=== PATIENT | female | born 1935 | race Caucasian/White ===

== ENCOUNTER 2018-08-15 09:46 | Emergency (ER) | payer MEDICARE, BC ==
[2018-08-15 09:58] VITALS: BP 164/60; PULSE 54
--- NOTE | 2018-08-15 10:30 | EDM.PDOC ---
ED HPI GENERAL MEDICAL PROBLEM - General Chief Complaint: Gastrointestinal Problem Stated Complaint: AMBULANCE Time Seen by Provider: 08/15/18 10:20 Source of Information: Reports: Patient History Limitations: Reports: No Limitations - History of Present Illness INITIAL COMMENTS - FREE TEXT/NARRATIVE: This 83 yo female patient was brought to the ED by [facility] due to dizziness and nausea. The patient reports her dizziness and nausea have subsided by the time of the assessment. The patient was given an oral dose of Zofran by EMS. The patient does report her stomach does not feel normal at this time, but could not describe how it feels different. The patient reports a history of diverticulitis (discovered several years ago while in [place]). 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 Medication(s) (Zofran by EMS) - Related Data Allergies Allergy/AdvReac Type Severity Reaction Status Date / Time atorvastatin calcium Allergy Leg Cramps Verified 10/12/15 15:41 [From Lipitor] warfarin sodium Allergy Dizziness Verified 10/12/15 15:41 [From Coumadin] Home Meds: Home Meds Lisinopril 10 mg PO DAILY 10/12/15 [History] Simvastatin [Zocor] 40 mg PO BEDTIME 10/12/15 [History] Past Medical History HEENT History: Reports: Impaired Vision Other HEENT History: wears glasses Cardiovascular History: Reports: Hypertension Gastrointestinal History: Reports: Diverticulosis 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: - Infectious Disease History Infectious Disease History: Reports: Other (See Below) Other Infectious Disease History: does not remember - Past Surgical History HEENT Surgical History: Reports: Cataract Surgery GI Surgical History: Reports: Hernia Repair/Other Female Surgical History: Reports: Hysterectomy Social & Family History - Family History Family Medical History: Noncontributory - Tobacco Use Smoking Status *Q: Never Smoker Second Hand Smoke Exposure: No - Recreational Drug Use Recreational Drug Use: No ED ROS GENERAL - Review of Systems Review Of Systems: ROS reveals no pertinent complaints other than HPI. ED EXAM, GENERAL - Physical Exam Exam: See Below Exam Limited By: No Limitations General Appearance: Alert, WD/WN, No Apparent Distress Eye Exam: Bilateral Eye: EOMI, Normal Inspection, PERRL Ears: Normal External Exam, Normal Canal, Hearing Grossly Normal, Normal TMs Nose: Normal Inspection, Normal Mucosa, No Blood Throat/Mouth: Normal Inspection, Normal Lips, Normal Teeth, Normal Gums, Normal Oropharynx, Normal Voice, No Airway Compromise Head: Atraumatic, Normocephalic Neck: Normal Inspection, Supple, Non-Tender, Full Range of Motion Respiratory/Chest: No Respiratory Distress, Lungs Clear, Normal Breath Sounds, No Accessory Muscle Use, Chest Non-Tender Cardiovascular: Normal Peripheral Pulses, Regular Rate, Rhythm, No Edema, No Gallop, No JVD, No Murmur, No Rub GI/Abdominal: Normal Bowel Sounds, Soft, Non-Tender, No Organomegaly, No Distention, No Abnormal Bruit, No Mass (Female) Exam: Deferred Rectal (Female) Exam: Deferred Back Exam: Normal Inspection, Full Range of Motion, NT Extremities: Normal Inspection, Normal Range of Motion, Non-Tender, Normal Capillary Refill, No Pedal Edema Neurological: Alert, Oriented, CN II-XII Intact, Normal Cognition, Normal Gait, Normal Reflexes, No Motor/Sensory Deficits Psychiatric: Normal Affect, Normal Mood Skin Exam: Warm, Dry, Intact, Normal Color, No Rash Lymphatic: No Adenopathy Course - Vital Signs Last Recorded V/S: Last Vital Signs Temp 35.8 C 08/15/18 09:49 Pulse 54 L 08/15/18 09:49 Resp 18 08/15/18 09:49 BP 164/60 H 08/15/18 09:49 Pulse Ox 92 L 08/15/18 09:49 Orthostatic Blood Pressure [ 105/86 Standing] Orthostatic Blood Pressure [ 152/71 Sitting] Orthostatic Blood Pressure [ 173/52 Supine] - Orders/Labs/Meds Orders: Active Orders 24 hr Category Date Time Status EKG Documentation Completion [RC] URGENT Care 08/15/18 09:59 Active Labs: Laboratory Tests 08/15/18 08/15/18 Range/Units 10:10 10:10 WBC 3.6 L (5.0-10.0) 10^3/uL RBC 4.53 (4.2-5.4) 10^6/uL Hgb 12.0 D (12.0-16.0) g/dL Hct 37.8 (37.0-47.0) % MCV 83.4 (80-100) fL MCH 26.5 L (27.0-34.0) pg MCHC 31.7 L (33.0-35.0) g/dL Plt Count 166 (150-450) 10^3/uL Neut % (Auto) 58.4 (42.2-75.2) % Lymph % (Auto) 24.5 (20.5-50.1) % [place] % (Auto) 10.4 H (2-8) % Eos % (Auto) 5.9 H (1.0-3.0) % Baso % (Auto) 0.8 (0.0-1.0) % Sodium 138 (135-145) mmol/L Potassium 4.2 (3.6-5.0) mmol/L Chloride 107 (101-111) mmol/L Carbon Dioxide 23.0 (21.0-31.0) mmol/L Anion Gap 12.2 BUN 19 H (7-18) mg/dL Creatinine 0.9 (0.6-1.3) mg/dL Est Cr Clr Drug Dosing TNP Estimated GFR (MDRD) 60 BUN/Creatinine Ratio 21.11 Glucose 202 H (74-105) mg/dL Calcium 9.2 (8.4-10.2) mg/dl Total Bilirubin 1.5 H (0.2-1.0) mg/dL AST 21 (10-42) IU/L ALT 14 (10-60) IU/L Alkaline Phosphatase 73 (42-121) IU/L Troponin I < 0.02 (0.00-0.02) ng/ml Total Protein 7.3 (6.7-8.2) g/dl Albumin 3.6 (3.2-5.5) g/dl Globulin 3.7 Albumin/Globulin Ratio 0.97 Departure - Departure Time of Disposition: 11:00 Disposition: Home, Self-Care 01 Condition: Fair Clinical Impression: Orthostatic hypotension, Near syncope - Discharge Information *PRESCRIPTION DRUG MONITORING PROGRAM REVIEWED*: Not Applicable *COPY OF PRESCRIPTION DRUG MONITORING REPORT IN PATIENT ILEANA: Not Applicable Instructions: Near-Syncope, [id number] Forms: ED Department Discharge Care Plan Goals: The patient was advised of the examination, lab and EKG results during the visit. The patient was encouraged to increase her oral fluid intake. The patient was also encouraged to rest and relax over the next 24 hours. The patient should stand for a few seconds before walking while at home. If the patient has any additional symptoms or concerns, the patient should either return to the emergency department or visit her primary care facility. - My Orders Last 24 Hours: My Active Orders 08/15/18 09:59 EKG Documentation Completion [RC] URGENT - Assessment/Plan Last 24 Hours: My Active Orders 08/15/18 09:59 EKG Documentation Completion [RC] URGENT
[2018-08-15 10:35] LABS: ANION GAP 12.2; CHLORIDE,CL 107 mmol/L (101-111); SODIUM,NA 138 mmol/L (135-145)
== END 2018-08-15 11:20 | disposition home or self-care (01) ==
LOC: DL.ED 09:46
DX: I95.1 Orthostatic hypotension (principal); I10 Essential (primary) hypertension; Z79.899 Other long term (current) drug therapy; Z88.8 Allergy status to other drugs, medicaments and biological substances; Z98.49 Cataract extraction status, unspecified eye; Z90.710 Acquired absence of both cervix and uterus
CPT/HCPCS: 36415; 80053; 84484; 85025; 93005; 99283; 99284-25

== ENCOUNTER 2020-05-31 12:44 | Emergency (ER) | payer MEDICARE, BC ==
[2020-05-31 12:59] VITALS: BP 139/72; PULSE 88
--- NOTE | 2020-05-31 15:13 | US ---
PROCEDURE INFORMATION: Exam: US Duplex Left Lower Extremity Veins, Limited Exam date and time: 05/31/2020 2:28 PM Age: 84 years old Clinical indication: Pain; Leg, upper; Left; Additional info: Left left pain/swelling, d-dimer >4000 TECHNIQUE: Imaging protocol: Real-time Duplex ultrasound of the Left Lower Extremity with 2-D savage scale, color Doppler flow and spectral waveform analysis with image documentation. Limited exam focused on the left lower extremity veins. COMPARISON: No relevant prior studies available. FINDINGS: Left deep veins: Thrombus is present throughout the common femoral, femoral, proximal profunda femoral and popliteal veins. Soft tissues: Unremarkable. IMPRESSION: DVT throughout the left lower extremity.
[2020-05-31] MEDS ORDERED: Heparin Sodium 5,000 Units/ML Vial IVPUSH ONE (15:23)
[2020-05-31] MEDS ORDERED: Heparin Sodium/0.45% NaCl 25,000 UNITS/500 ML BAG IV SCH (15:30)
--- NOTE | 2020-05-31 15:42 | EDM.PDOC ---
Scribed by Felicia Morillo 05/31/20 1306 for Roger Garcia MD ED HPI GENERAL MEDICAL PROBLEM - General Chief Complaint: Lower Extremity Injury/Pain Stated Complaint: LEFT THIGH SWOLLEN PAINFUL Time Seen by Provider: 05/31/20 12:54 Source of Information: Reports: Patient, RN, RN Notes Reviewed History Limitations: Reports: No Limitations - History of Present Illness INITIAL COMMENTS - FREE TEXT/NARRATIVE: Patient presents to ED by POV stating that her left thigh starting hurting today. She first noticed the pain around 0800HRS this morning. Now she sees the entire left lower extremity is swollen and slightly pink. Denies any injury, fall, joint pain, fever, increased warmth, or Hx of DVT. Pt denies chest pain, cough, shortness of breath, or any other symptoms. Onset: Today, Unknown/Unsure Duration: Constant Location: Reports: Lower Extremity, Left Quality: Reports: Ache Severity: Mild Improves with: Reports: None Worsens with: Reports: Movement Associated Symptoms: Reports: No Other Symptoms Left Thigh Pain Score (Numeric/FACES): 5 - Related Data Allergies Allergy/AdvReac Type Severity Reaction Status Date / Time atorvastatin calcium Allergy Leg Cramps Verified 05/31/20 12:56 [From Lipitor] warfarin sodium Allergy Dizziness Verified 05/31/20 12:56 [From Coumadin] Home Meds: Home Meds Lisinopril 10 mg PO DAILY 10/12/15 [History] Simvastatin [Zocor] 40 mg PO BEDTIME 10/12/15 [History] Past Medical History HEENT History: Reports: Impaired Vision Other HEENT History: wears glasses Cardiovascular History: Reports: High Cholesterol, Hypertension Gastrointestinal History: Reports: Diverticulosis 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 ED EXAM, GENERAL - Physical Exam Exam: See Below Exam Limited By: No Limitations General Appearance: Alert, WD/WN, No Apparent Distress Nose: Normal Inspection Throat/Mouth: Normal Inspection, Normal Voice, No Airway Compromise Neck: Normal Inspection, Supple, Non-Tender, Full Range of Motion Respiratory/Chest: No Respiratory Distress, Lungs Clear, Normal Breath Sounds, No Accessory Muscle Use, Chest Non-Tender Cardiovascular: Normal Peripheral Pulses, Regular Rate, Rhythm GI/Abdominal: Normal Bowel Sounds, Soft, Non-Tender, No Organomegaly, No Distention, No Abnormal Bruit, No Mass Back Exam: Normal Inspection Extremities: Normal Range of Motion, Normal Capillary Refill, Other (The entire left lower extremity has moderate soft tissue swelling, with some pitting edema of the lower leg, the enitre leg is normal in temperature, but pink in color compared to the right. The left anterior thigh is slightly tender to palpation.). No: Joint Swelling, Arm Pain, Keysha's Sign, Increased Warmth, Mottled, Pallor Neurological: Alert, Oriented, CN II-XII Intact, Normal Cognition, Normal Gait, No Motor/Sensory Deficits Psychiatric: Normal Mood Skin Exam: Warm, Dry, Intact, No Rash. No: Ecchymosis, Increased Warmth, Jaundice, Pallor, Petechiae, Rash Course - Vital Signs Last Recorded V/S: Last Vital Signs Temp 96 F L 05/31/20 12:56 Pulse 88 05/31/20 12:56 Resp 16 05/31/20 12:56 BP 139/72 05/31/20 12:56 Pulse Ox 99 05/31/20 12:56 - Orders/Labs/Meds Orders: Active Orders 24 hr Category Date Time Status Heparin Sodium/0.45% NaCl [Heparin 25,000 Units in 1/2 Med 05/31/20 15:30 Active NS 500 ML] 25,000 units in 500 ml IV TITRATE Medication Orders Heparin Sodium/Sodium Chloride (Heparin 25,000 Units In 1/2 Ns 500 Ml) 25,000 units in 500 mls @ 25.147 mls/hr IV TITRATE [facility] [place]; Protocol Last Admin: 05/31/20 15:32 Dose: 18 units/kg/hr, 25.147 mls/hr Documented by: LUCY Cosigned by: YENI Labs: Laboratory Tests 05/31/20 05/31/20 05/31/20 Range/Units 13:03 13:03 13:03 WBC 8.0 (5.0-10.0) 10^3/uL RBC 4.74 (4.2-5.4) 10^6/uL Hgb 11.6 L (12.0-16.0) g/dL Hct 37.2 (37.0-47.0) % MCV 78.5 L D (80-100) fL MCH 24.5 L (27.0-34.0) pg MCHC 31.2 L (33.0-35.0) g/dL Plt Count 208 (150-450) 10^3/uL Neut % (Auto) 75.4 H (42.2-75.2) % Lymph % (Auto) 11.8 L (20.5-50.1) % [place] % (Auto) 10.7 H (2-8) % Eos % (Auto) 2.0 (1.0-3.0) % Baso % (Auto) 0.1 (0.0-1.0) % PT (9.0-12.0) SEC INR (0.9-1.2) APTT (22.0-34.0) SEC D-Dimer, Quantitative 4160 H (0-400) ng/mL Sodium 140 (136-145) mmol/L Potassium 4.0 (3.5-5.1) mmol/L Chloride 103 (98-107) mmol/L Carbon Dioxide 23 (21-32) mmol/L Anion Gap 18.0 H (7-13) mEq/L BUN 15 (7-18) mg/dL Creatinine 1.42 H (0.55-1.02) mg/dL Est Cr Clr Drug Dosing 27.61 mL/min Estimated GFR (MDRD) 35 BUN/Creatinine Ratio 10.6 (No establ ref range) Glucose 210 H (74-99) mg/dL Calcium 9.1 (8.5-10.1) mg/dL Total Bilirubin 1.3 H (0.2-1.0) mg/dL AST 15 (15-37) U/L ALT 13 L (14-59) U/L Alkaline Phosphatase 173 H (46-116) U/L C-Reactive Protein 1.6 H (0.0-0.9) mg/dL Total Protein 8.1 (6.4-8.2) g/dL Albumin 3.4 (3.4-5.0) g/dL Globulin 4.7 Albumin/Globulin Ratio 0.7 // Range/Units 13:03 WBC (5.0-10.0) 10^3/uL RBC (4.2-5.4) 10^6/uL Hgb (12.0-16.0) g/dL Hct (37.0-47.0) % MCV (80-100) fL MCH (27.0-34.0) pg MCHC (33.0-35.0) g/dL Plt Count (150-450) 10^3/uL Neut % (Auto) (42.2-75.2) % Lymph % (Auto) (20.5-50.1) % [place] % (Auto) (2-8) % Eos % (Auto) (1.0-3.0) % Baso % (Auto) (0.0-1.0) % PT 11.3 (9.0-12.0) SEC INR 1.2 (0.9-1.2) APTT 22.0 (22.0-34.0) SEC D-Dimer, Quantitative (0-400) ng/mL Sodium (136-145) mmol/L Potassium (3.5-5.1) mmol/L Chloride (98-107) mmol/L Carbon Dioxide (21-32) mmol/L Anion Gap (7-13) mEq/L BUN (7-18) mg/dL Creatinine (0.55-1.02) mg/dL Est Cr Clr Drug Dosing mL/min Estimated GFR (MDRD) BUN/Creatinine Ratio (No establ ref range) Glucose (74-99) mg/dL Calcium (8.5-10.1) mg/dL Total Bilirubin (0.2-1.0) mg/dL AST (15-37) U/L ALT (14-59) U/L Alkaline Phosphatase (46-116) U/L C-Reactive Protein (0.0-0.9) mg/dL Total Protein (6.4-8.2) g/dL Albumin (3.4-5.0) g/dL Globulin Albumin/Globulin Ratio Meds: Medications Generic Name Dose Route Start Last Admin Trade Name Freq PRN Reason Stop Dose Admin Heparin Sodium/Sodium Chloride 25,000 units in 500 mls @ 25.147 mls/hr 05/31/20 15:30 05/31/20 15:32 Heparin 25,000 Units In 1/2 Ns 500 Ml IV 18 units/kg/hr TITRATE TWILA 25.147 mls/hr Administration Protocol 18 UNITS/KG/HR Discontinued Medications Generic Name Dose Route Start Last Admin Trade Name Le PRN Reason Stop Dose Admin Heparin Sodium (Porcine) 4,000 units 05/31/20 15:23 05/31/20 15:31 Heparin Sodium IVPUSH 05/31/20 15:24 4,000 units .BOLUS ONE Administration - Radiology Interpretation Free Text/Narrative:: [facility] [place] [facility] Final Radiology Report Call: [phone] assistance Online chat: [email or web address] Name: VIVEK RICHARD Age: 84Years F Date: 05/31/2020 SSN: -- : [id number] Study: US VENOUS DOPPLER LWR EXT LT Requesting Physician: ROGER GARCIA Images: 24 Addl Studies: Provided Clinical History: Left left pain/swelling, D-dimer >4000 Contrast: Contrast Medium: Contrast Amount: Contrast Method: CONFIDENTIALITY STATEMENT This report is intended only for use by the referring physician, and only in accordance with law. If you received this in error, call [phone]. Page 1 of 1 PROCEDURE INFORMATION: Exam: US Duplex Left Lower Extremity Veins, Limited Exam date and time: 05/31/2020 2:28 PM Age: 84 years old Clinical indication: Pain; Leg, upper; Left; Additional info: Left left pain/swelling, d-dimer >4000 TECHNIQUE: Imaging protocol: Real-time Duplex ultrasound of the Left Lower Extremity with 2-D savage scale, color Doppler flow and spectral waveform analysis with image documentation. Limited exam focused on the left lower extremity veins. COMPARISON: No relevant prior studies available. FINDINGS: Left deep veins: Thrombus is present throughout the common femoral, femoral, proximal profunda femoral and popliteal veins. Soft tissues: Unremarkable. IMPRESSION: DVT throughout the left lower extremity. Thank you for allowing us to participate in the care of your patient. Dictated and Authenticated by: Genaro Swenson DO 05/31/2020 3:13 PM Central Time ([place] & [place]) Departure - Departure Time of Disposition: 15:39 Disposition: DC/Tfer to Acute Hospital 02 Condition: Fair Clinical Impression: Deep vein thrombosis (DVT) of left lower extremity Qualifiers: Affected thrombotic vein of extremity: unspecified vein of extremity Chronicity: acute Qualified Code(s): I82.402 - Acute embolism and thrombosis of unspecified deep veins of left lower extremity Dementia Qualifiers: Dementia type: unspecified type Dementia behavioral disturbance: without behavioral disturbance Qualified Code(s): F03.90 - Unspecified dementia without behavioral disturbance - Discharge Information *PRESCRIPTION DRUG MONITORING PROGRAM REVIEWED*: Not Applicable *COPY OF PRESCRIPTION DRUG MONITORING REPORT IN PATIENT ILEANA: Not Applicable Forms: ED Department Discharge, Interfacility Transfer EMTALA Sepsis Event Note (ED) - Focused Exam Vital Signs: Vital Signs Temp Pulse Resp BP Pulse Ox 05/31/20 12:56 96 F L 88 16 139/72 99 - My Orders Last 24 Hours: My Active Orders 05/31/20 15:30 Heparin Sodium/0.45% NaCl [Heparin 25,000 Units in 1/2 NS 500 ML] 25,000 units i n 500 ml IV TITRATE - Assessment/Plan Last 24 Hours: My Active Orders 05/31/20 15:30 Heparin Sodium/0.45% NaCl [Heparin 25,000 Units in 1/2 NS 500 ML] 25,000 units in 500 ml IV TITRATE I have read and agree with the documentation that has been completed regarding this visit. By signing this record, I attest that the documentation was co mpleted in my physical presence and is an accurate record of the encounter.
== END 2020-05-31 16:15 ==
LOC: DL.ED 12:44
DX: I82.412 Acute embolism and thrombosis of left femoral vein (principal); I82.4Y2 Acute embolism and thrombosis of unspecified deep veins of left proximal lower extremity; F03.90 Unspecified dementia, unspecified severity, without behavioral disturbance, psychotic disturbance, mood disturbance, and anxiety; E78.00 Pure hypercholesterolemia, unspecified; I10 Essential (primary) hypertension; Z88.8 Allergy status to other drugs, medicaments and biological substances; Z79.899 Other long term (current) drug therapy
CPT/HCPCS: 36415; 80053; 85025; 85379; 85610; 85730; 86140; 93971; 96365; 99285; J1644; 99284

== ENCOUNTER 2020-06-02 14:10 | Emergency (ER) | payer MEDICARE, BC ==
[2020-06-02] MEDS ORDERED: Sodium Chloride 0.9% 10 ML Syringe FLUSH PRN (14:22)
--- NOTE | 2020-06-02 14:22 | EDM.PDOC ---
ED HPI GENERAL MEDICAL PROBLEM - General Chief Complaint: Gastrointestinal Problem Stated Complaint: AMBULANCE Time Seen by Provider: 06/02/20 14:22 Source of Information: Reports: Patient, EMS, Family (son), Old Records, RN, RN Notes Reviewed History Limitations: Reports: No Limitations - History of Present Illness INITIAL COMMENTS - FREE TEXT/NARRATIVE: Pt presents to ED via [facility] with c/o syncope and blood in her stools. Son states that pt was dc from [facility] today following a DVT. Was started on heparin drip in ED and started on eliquis 5mg BID after being d/c from heaprin drip. Pt denies pain at this time. Pt states she had a maroon/black stool before her syncopal episode. Onset: Today, Sudden Duration: Constant Quality: Reports: Other (Denies pain) Severity: Severe Improves with: Reports: None Worsens with: Reports: None Associated Symptoms: Reports: No Other Symptoms - Related Data Allergies Allergy/AdvReac Type Severity Reaction Status Date / Time atorvastatin calcium Allergy Leg Cramps Verified 06/02/20 14:22 [From Lipitor] warfarin sodium Allergy Dizziness Verified 06/02/20 14:22 [From Coumadin] Home Meds: Home Meds Lisinopril 10 mg PO DAILY 10/12/15 [History] Simvastatin [Zocor] 40 mg PO BEDTIME 10/12/15 [History] Apixaban [Eliquis] 5 mg PO BID 06/02/20 [History] metFORMIN [Glucophage] 500 mg PO BIDMEALS 06/02/20 [History] Past Medical History HEENT History: Reports: Impaired Vision Other HEENT History: wears glasses Cardiovascular History: Reports: Blood Clots/VTE/DVT (Left lower extremity), Hypertension Gastrointestinal History: Reports: Diverticulosis 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 GI Surgical History: Reports: Hernia Repair/Other Female Surgical History: Reports: Hysterectomy Social & Family History - Family History Family Medical History: No Pertinent Family History - Caffeine Use Caffeine Use: Reports: Coffee, Tea - Living Situation & Occupation Occupation: Retired ED ROS GENERAL - Review of Systems Review Of Systems: Comprehensive ROS is negative, except as noted in HPI. ED EXAM, GI/ABD - Physical Exam Exam: See Below Exam Limited By: No Limitations General Appearance: Alert, WD/WN, No Apparent Distress Eyes: Bilateral: Normal Appearance Ears: Hearing Grossly Normal Nose: Normal Inspection, Normal Mucosa, No Blood Throat/Mouth: Normal Inspection, Normal Lips, Normal Oropharynx, Normal Voice, No Airway Compromise Head: Atraumatic, Normocephalic Neck: Normal Inspection, Non-Tender, Full Range of Motion Respiratory/Chest: No Respiratory Distress, Lungs Clear, Normal Breath Sounds, No Accessory Muscle Use, Chest Non-Tender Cardiovascular: Regular Rate, Rhythm, Irregularly Irregular GI/Abdominal Exam: Normal Bowel Sounds, Soft, Non-Tender, No Organomegaly, No Distention, No Abnormal Bruit, No Mass, Pelvis Stable (Female) Exam: Deferred Rectal (Female) Exam: Black Stool, Heme + Stool Back Exam: Normal Inspection Neurological: Alert, Oriented (to person and place only), No Motor/Sensory Deficits, Confused (mild) Psychiatric: Normal Affect, Normal Mood #1 Interpretation EKG Date: 06/02/20 Time: 14:25 Rhythm: Other (Sinus arrhythmia) Rate (Beats/Min): 77 [place]: LAD-Left [place] Deviation P-Wave: Present QRS: RBBB ST-T: Normal QT: Normal Comparison: No Change Course - Vital Signs Last Recorded V/S: Last Vital Signs Temp 97.7 F 06/02/20 14:23 Pulse 79 06/02/20 14:23 Resp 16 06/02/20 14:23 BP 125/63 06/02/20 14:23 Pulse Ox 94 L 06/02/20 14:23 - Orders/Labs/Meds Orders: Active Orders 24 hr Category Date Time Status EKG 12 Lead [EKG Documentation Completion] [RC] STAT Care 06/02/20 14:23 Active Peripheral IV Care [RC] . DIRECTED Care 06/02/20 14:23 Active AMYLASE [CHEM] Stat Lab 06/02/20 14:34 Received B-TYPE NATRIURETIC PEPTIDE,BNP [CHEM] Stat Lab 06/02/20 14:34 Received COMPREHENSIVE METABOLIC PN,CMP [CHEM] Stat Lab 06/02/20 14:34 Received LIPASE [CHEM] Stat Lab 06/02/20 14:34 Received TROPONIN I [CHEM] Stat Lab 06/02/20 14:34 Received TYPE AND SCREEN [BBK] Stat Lab 06/02/20 14:34 Received Pantoprazole [ProTONIX IV] 40 mg Med 06/02/20 15:15 Active Sodium Chloride 0.9% [Normal Saline] 100 ml IV .CONTINUOS Sodium Chloride 0.9% [Normal Saline] 1,000 ml Med 06/02/20 15:04 Active IV .BOLUS Sodium Chloride 0.9% [Saline Flush] Med 06/02/20 14:22 Active 10 ml FLUSH ASDIRECTED PRN Peripheral IV Insertion Adult [OM.PC] Stat Oth 06/02/20 14:23 Ordered Labs: Laboratory Tests 06/02/20 06/02/20 Range/Units 14:34 14:34 WBC 4.9 L (5.0-10.0) 10^3/uL RBC 4.03 L (4.2-5.4) 10^6/uL Hgb 9.9 L D (12.0-16.0) g/dL Hct 32.0 L (37.0-47.0) % MCV 79.4 L (80-100) fL MCH 24.6 L (27.0-34.0) pg MCHC 30.9 L (33.0-35.0) g/dL Plt Count 162 (150-450) 10^3/uL Neut % (Auto) 72.3 (42.2-75.2) % Lymph % (Auto) 12.9 L (20.5-50.1) % [place] % (Auto) 11.1 H (2-8) % Eos % (Auto) 3.5 H (1.0-3.0) % Baso % (Auto) 0.2 (0.0-1.0) % PT 13.3 H (9.0-12.0) SEC INR 1.4 H (0.9-1.2) APTT 24.6 (22.0-34.0) SEC Transfer initiated before all lab results complete. Departure - Departure Time of Disposition: 15:10 Disposition: DC/Tfer to [facility] 02 Condition: Serious Clinical Impression: Acute upper GI bleed, Anticoagulant-induced bleeding Left leg DVT Qualifiers: Affected thrombotic vein of extremity: unspecified vein of extremity Chronicity: acute Qualified Code(s): I82.402 - Acute embolism and thrombosis of unspecified deep veins of left lower extremity - Discharge Information *PRESCRIPTION DRUG MONITORING PROGRAM REVIEWED*: Not Applicable *COPY OF PRESCRIPTION DRUG MONITORING REPORT IN PATIENT ILEANA: Not Applicable Forms: ED Department Discharge, Interfacility Transfer SALLY Sepsis Event Note (ED) - Focused Exam Vital Signs: Vital Signs Temp Pulse Resp BP Pulse Ox 06/02/20 14:23 97.7 F 79 16 125/63 94 L - My Orders Last 24 Hours: My Active Orders 06/02/20 14:22 Sodium Chloride 0.9% [Saline Flush] 10 ml FLUSH ASDIRECTED PRN 06/02/20 14:23 EKG 12 Lead [EKG Documentation Completion] [RC] STAT Peripheral IV Care [RC] . DIRECTED Peripheral IV Insertion Adult [OM.PC] Stat 06/02/20 14:34 AMYLASE [CHEM] Stat B-TYPE NATRIURETIC PEPTIDE,BNP [CHEM] Stat COMPREHENSIVE METABOLIC PN,CMP [CHEM] Stat LIPASE [CHEM] Stat TROPONIN I [CHEM] Stat TYPE AND SCREEN [BBK] Stat 06/02/20 15:04 Sodium Chloride 0.9% [Normal Saline] 1,000 ml IV .BOLUS 06/02/20 15:15 Pantoprazole [ProTONIX IV] 40 mg Sodium Chloride 0.9% [Normal Saline] 100 ml IV .CONTINUOS - Assessment/Plan Last 24 Hours: My Active Orders 06/02/20 14:22 Sodium Chloride 0.9% [Saline Flush] 10 ml FLUSH ASDIRECTED PRN 06/02/20 14:23 EKG 12 Lead [EKG Documentation Completion] [RC] STAT Peripheral IV Care [RC] . DIRECTED Peripheral IV Insertion Adult [OM.PC] Stat 06/02/20 14:34 AMYLASE [CHEM] Stat B-TYPE NATRIURETIC PEPTIDE,BNP [CHEM] Stat COMPREHENSIVE METABOLIC PN,CMP [CHEM] Stat LIPASE [CHEM] Stat TROPONIN I [CHEM] Stat TYPE AND SCREEN [BBK] Stat 06/02/20 15:04 Sodium Chloride 0.9% [Normal Saline] 1,000 ml IV .BOLUS 06/02/20 15:15 Pantoprazole [ProTONIX IV] 40 mg Sodium Chloride 0.9% [Normal Saline] 100 ml IV .CONTINUOS
[2020-06-02 14:26] VITALS: BP 125/63; PULSE 79
[2020-06-02 15:01] LABS: PTT,PARTIAL THROMBOPLSTIN TIME 24.6 SEC (22.0-34.0)
[2020-06-02] MEDS ORDERED: Sodium Chloride 0.9% 1,000 ML IV ONE (15:04)
[2020-06-02] MEDS ORDERED: Pantoprazole 40 MG Vial IVPUSH ONE (15:04)
[2020-06-02] MEDS ORDERED: Pantoprazole 40 MG in Sodium Chloride 0.9% 100 ML IV SCH (15:15)
== END 2020-06-02 15:45 ==
LOC: DL.ED 14:10
DX: K92.2 Gastrointestinal hemorrhage, unspecified (principal); I82.402 Acute embolism and thrombosis of unspecified deep veins of left lower extremity; D68.32 Hemorrhagic disorder due to extrinsic circulating anticoagulants; T45.515A Adverse effect of anticoagulants, initial encounter; I10 Essential (primary) hypertension; I49.8 Other specified cardiac arrhythmias; Z88.8 Allergy status to other drugs, medicaments and biological substances; Z79.01 Long term (current) use of anticoagulants; Z79.899 Other long term (current) drug therapy
CPT/HCPCS: 36415; 80053; 82150; 82272; 83690; 83880; 84484; 85025; 85610; 85730; 86850; 86900; 86901; 93005; 93010; 96365; 99283; 99285; C9113; J7030

== ENCOUNTER 2020-06-23 05:29 | Day surgery (SDC) | payer MEDICARE, BC ==
[2020-06-23] MEDS ORDERED: Midazolam 1 MG/ML 2 ML SDV IV ONE ×2 (05:30→06:35)
[2020-06-23] MEDS ORDERED: fentaNYL 100 MCG/2 ML SDV IV ONE ×2 (05:30→06:34)
[2020-06-23] MEDS ORDERED: Dextrose 5%-0.45% NaCl 1,000 ML IV SCH (06:00)
[2020-06-23] MEDS ORDERED: fentaNYL 100 MCG/2 ML SDV ONE (06:16)
[2020-06-23] MEDS ORDERED: Midazolam 1 MG/ML 2 ML SDV ONE (06:16)
--- NOTE | 2020-06-23 09:26 | OR ---
DATE: 06/23/2020 PROCEDURE PERFORMED: Esophagogastroduodenoscopy and multiple pinch biopsies. INSTRUMENT USED: [id number] Olympus video panendoscope. PREMEDICATIONS: No oral or topical anesthesia used. Fentanyl 50 mcg intravenous, Versed 1 mg intravenous. Nasal O2 cannula. The procedure was done under pulse oximetry, BP recording, and clinical research monitor. INDICATION: The patient with recent gastrointestinal bleeding and related iron- deficiency anemia. Esophagogastroduodenoscopy is performed for detection of any active erosive lesions, [place] esophagus and/or malignancy also under consideration, H. pylori status to be determined, endoscopic hemostasis therapy if needed. The scope was passed with ease. Adequate visualization of the esophagus was made from proximal to distal areas. No upper esophageal lesions identified. No distal esophageal stricture. No uphill or downhill esophageal varices. No Funmilayo-Sorensen tear. No evidence of erosive esophagitis by [place] criteria. No esophageal polyps or tumor mass identified. Sliding hiatal hernia was noted. No proximal gastric varices noted. Gastric fundus examination by retroflexion showed no polypoid lesions. No gastric ulcer, malignant mass, or vascular ectasia identified. Duodenal bulb showed no ulcer. Visualized second part of the duodenum was unremarkable. Multiple pinch biopsies were taken from the gastric antrum and proximal body and sent for PyloriTek test for H. pylori, and if negative in an hour, the tissue is to be sent for histopathology. No bleeding was noted from any of the visualized areas at the completion of examination. Photographs were taken of the duodenal bulb, gastric antrum, fundus, and distal esophagus. IMPRESSION: Sliding hiatal hernia. The patient tolerated the procedure well. [facility] /[id number]
[2020-06-23 09:43] VITALS: BP 113/70; PULSE 63
== END 2020-06-23 08:48 | disposition home or self-care (01) ==
LOC: DL.ENDO 05:29
PROVIDERS: ATTEND Internal Medicine Gastroenterology
DX: K92.2 Gastrointestinal hemorrhage, unspecified (principal); K44.9 Diaphragmatic hernia without obstruction or gangrene; D50.9 Iron deficiency anemia, unspecified; I10 Essential (primary) hypertension; E78.5 Hyperlipidemia, unspecified; E11.9 Type 2 diabetes mellitus without complications; M19.90 Unspecified osteoarthritis, unspecified site; I82.409 Acute embolism and thrombosis of unspecified deep veins of unspecified lower extremity; H91.90 Unspecified hearing loss, unspecified ear; Z88.8 Allergy status to other drugs, medicaments and biological substances; Z95.818 Presence of other cardiac implants and grafts; Z98.890 Other specified postprocedural states
CPT/HCPCS: 43239; 87077; 88305; J2250; J3010; J7042

== ENCOUNTER 2020-07-02 06:59 | Day surgery (SDC) | payer MEDICARE, BC ==
[~2020-07-02 06:59] MED LIST: Dextrose 5%-0.45% NaCl 1,000 ML IV SCH; Midazolam 1 MG/ML 2 ML SDV ONE; fentaNYL 100 MCG/2 ML SDV ONE
[2020-07-02] MEDS ORDERED: Midazolam 1 MG/ML 2 ML SDV IV ONE ×5 (07:00→08:11)
[2020-07-02] MEDS ORDERED: fentaNYL 100 MCG/2 ML SDV IV ONE ×4 (07:00→08:08)
[2020-07-02 10:55] VITALS: BP 121/49; PULSE 58
--- NOTE | 2020-07-02 14:54 | OR ---
DATE: 07/02/2020 PROCEDURES: Total colonoscopy, narrow-band imaging, and multiple pinch biopsies. INSTRUMENT USED: [id number]-[id number] Olympus video colonoscope. PREMEDICATIONS: Fentanyl 100 mcg intravenous, Versed 3 mg intravenous, nasal O2 cannula. The procedure was done under pulse oximetry, BP recording, and cardiac tech. INDICATION: The patient with gastrointestinal bleeding and iron-deficiency anemia. Colonoscopic examination is done for detection of any polypoid lesions and removal, endoscopic hemostasis therapy if needed. DESCRIPTION OF PROCEDURE: Initial rectal exam was unremarkable. Rigid anoscopy showed small internal hemorrhoids without bleeding from them. The colonoscope was passed with ease up to the ileocecal area. Photographs were taken of the cecum showing large malignant-appearing lesion without bleeding from it, NBI views were obtained, photographs were taken, multiple pinch biopsies were obtained and sent for histopathology. No bleeding was noted from any of the visualized areas at the commencement of the examination. The bowel preparation was found to be adequate, [place] scale 2 in all the regions, total score 6. No vascular ectasia. No large isolated ulcerations seen. No evidence of diffuse inflammatory bowel disease in the form of friability, contact bleeding, or ulcerations. Probing the proximal sides of folds and flexures using adequate distention and clearing up the stool material, withdrawal of the scope was made, cecum to rectum time over 6 minutes. No bleeding was noted from any of the visualized areas at the completion of examination. IMPRESSION: Cecal malignancy. The patient tolerated the procedure well. [facility] /[id number]
== END 2020-07-02 10:31 | disposition home or self-care (01) ==
LOC: DL.ENDO 06:59
PROVIDERS: ATTEND Internal Medicine Gastroenterology
DX: C18.0 Malignant neoplasm of cecum (principal); D50.9 Iron deficiency anemia, unspecified; K64.8 Other hemorrhoids; I10 Essential (primary) hypertension; I82.409 Acute embolism and thrombosis of unspecified deep veins of unspecified lower extremity; E11.9 Type 2 diabetes mellitus without complications; Z98.890 Other specified postprocedural states; E78.5 Hyperlipidemia, unspecified
CPT/HCPCS: 88305; 88341; 88342; J2250; J3010; J7042

== ENCOUNTER 2020-10-18 16:02 | Inpatient (IN) | payer MEDICARE, BC ==
[2020-10-18 16:55] LABS: CHLORIDE,CL 106 mmol/L (98-107); SODIUM,NA 143 mmol/L (136-145)
--- NOTE | 2020-10-18 17:09 | CR ---
PROCEDURE INFORMATION: Exam: XR Left Femur Exam date and time: 10/18/2020 4:26 PM Age: 85 years old Clinical indication: Other: Fell 2 days ago; Additional info: Ground level fall TECHNIQUE: Imaging protocol: XR Left femur. Views: 2 views. COMPARISON: US Venous Doppler Lwr Ext Lt 05/31/2020 2:28 PM FINDINGS: Bones/joints: The bone density is mildly decreased. There are moderate degenerative changes of the patellofemoral joint. The left hip joint is normal. There is no evidence of acute fracture. Soft tissues: No soft tissue swelling is identified. Vasculature: The vasculature demonstrates diffuse moderate atherosclerotic calcification. IMPRESSION: No acute abnormality.
--- NOTE | 2020-10-18 17:10 | CR ---
PROCEDURE INFORMATION: Exam: XR Left Tibia and Fibula Exam date and time: 10/18/2020 4:29 PM Age: 85 years old Clinical indication: Other: Fell 2 days ago; Additional info: Ground level fall TECHNIQUE: Imaging protocol: XR Left tibia and fibula. Views: 2 views. COMPARISON: US Venous Doppler Lwr Ext Lt 05/31/2020 2:28 PM FINDINGS: Bones/joints: The bone density is mildly decreased. There is degenerative change in the patellofemoral joint. The joint spaces are otherwise maintained. There is a noninflamed plantar enthesophyte. Soft tissues: No soft tissue swelling is identified. Vasculature: The vasculature demonstrates diffuse moderate atherosclerotic calcification. IMPRESSION: No acute abnormality.
--- NOTE | 2020-10-18 17:33 | US ---
PROCEDURE INFORMATION: Exam: US Duplex Left Lower Extremity Veins, Limited Exam date and time: 10/18/2020 4:38 PM Age: 85 years old Clinical indication: Pain; Leg, lower; Left; Additional info: Ground level fall lower leg pain TECHNIQUE: Imaging protocol: Real-time Duplex ultrasound of the Left Lower Extremity with 2-D savage scale, color Doppler flow and spectral waveform analysis with image documentation. Limited exam focused on the left lower extremity veins. COMPARISON: US Venous Doppler Lwr Ext Lt 05/31/2020 2:28 PM FINDINGS: Left deep veins: The deep venous system of the left leg are widely patent with appropriate waveform and compressibility. Left superficial veins: There is clot in the greater saphenous vein. Soft tissues: There is a popliteal cyst with irregular internal echoes. The cyst measures about 3.9 x 2.8 cm. A complicated Cabezas's cyst is favored but the appearance is nonspecific. IMPRESSION: 1. Thrombus is demonstrated in the greater saphenous vein but no deep venous thrombosis is seen. 2. Complicated cystic structure in the popliteal fossa.
--- NOTE | 2020-10-18 17:43 | EDM.PDOC ---
<Isma Galindo Angie - Last Filed: 10/18/20 17:55> ED HPI GENERAL MEDICAL PROBLEM - General Chief Complaint: Lower Extremity Injury/Pain Stated Complaint: PAIN IN LEFT LEG Time Seen by Provider: 10/18/20 16:45 Source of Information: Reports: Patient, Family History Limitations: Reports: No Limitations - History of Present Illness INITIAL COMMENTS - FREE TEXT/NARRATIVE: This 85 yo female patient was brought to the ED by her son due to left leg pain. The patient fell 2 days ago due to left leg pain. The patient's son reports the patient was diagnosed with a blood clot in May 2020. The patient was then diagnosed with colon cancer in June 2020. The patient had the colon cancer removed, but had a filter placed. The patient is supposed to start physical therapy on Monday. The patient has had increased difficulties in ambulation and increased intermittent pain in her left leg (mid thigh to mid lower leg). The patient is currently on Eliquis and has been on it for 4 weeks. Duration: Day(s):, Constant, Getting Worse Location: Reports: Lower Extremity, Left Quality: Reports: Ache, Dull Severity: Moderate Improves with: Reports: None Worsens with: Reports: None Context: Reports: Other Left Leg Pain Score (Numeric/FACES): 8 - Related Data Allergies Allergy/AdvReac Type Severity Reaction Status Date / Time atorvastatin calcium Allergy Leg Cramps Verified 10/18/20 21:25 [From Lipitor] warfarin sodium Allergy Dizziness Verified 10/18/20 21:25 [From Coumadin] Home Meds: Home Meds Lisinopril 40 mg PO DAILY 10/12/15 [History] Simvastatin [Zocor] 40 mg PO BEDTIME 10/12/15 [History] Apixaban [Eliquis] 5 mg PO BID 06/02/20 [History] metFORMIN [Glucophage] 500 mg PO BIDMEALS 06/02/20 [History] Acetaminophen 650 mg PO BID PRN 06/22/20 [History] Multivits,Ca,Minerals/Iron/FA [Thera-Tabs M [place]] 1 tab PO DAILY 06/22/20 [History] amLODIPine [Norvasc] 5 mg PO DAILY 06/22/20 [History] Ferrous Fumarate 324 mg PO BID 10/18/20 [History] Past Medical History HEENT History: Reports: Hard of Hearing, Impaired Vision Other HEENT History: wears glasses Cardiovascular History: Reports: Blood Clots/VTE/DVT, Hypertension Respiratory History: Reports: None Gastrointestinal History: Reports: Diverticulosis, GI Bleed, Hiatal Hernia Genitourinary History: Reports: Chronic Renal Insuffiency 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: Musculoskeletal History: Reports: Osteoarthritis Neurological History: Reports: None Psychiatric History: Reports: None Endocrine/Metabolic History: Reports: Diabetes, Type II Hematologic History: Reports: Anemia, Iron Deficiency Immunologic History: Reports: None Oncologic (Cancer) History: Reports: None Dermatologic History: Reports: None - Infectious Disease History Infectious Disease History: Reports: Other (See Below) Other Infectious Disease History: does not remember - Past Surgical History Head Surgeries/Procedures: Reports: None HEENT Surgical History: Reports: Cataract Surgery Other HEENT Surgeries/Procedures: bilateral eyes. Cardiovascular Surgical History: Reports: Other (See Below) Other Cardiovascular Surgeries/Procedures: [employer] Respiratory Surgical History: Reports: None GI Surgical History: Reports: Colonoscopy, EGD, Hernia Repair/Other Female Surgical History: Reports: Hysterectomy Endocrine Surgical History: Reports: None Neurological Surgical History: Reports: None Oncologic Surgical History: Reports: None Dermatological Surgical History: Reports: None Social & Family History - Family History Family Medical History: No Pertinent Family History - Tobacco Use Tobacco Use Status *Q: Never Tobacco User - Caffeine Use Caffeine Use: Reports: Coffee Caffeine Use Comment: rare - Recreational Drug Use Recreational Drug Use: No - Living Situation & Occupation Occupation: Retired Review of Systems - Review of Systems Review Of Systems: Comprehensive ROS is negative, except as noted in HPI. ED EXAM, GENERAL - Physical Exam Exam: See Below Exam Limited By: No Limitations General Appearance: Alert, WD/WN Eye Exam: Bilateral Eye: EOMI, Normal Inspection, PERRL Ears: Normal External Exam, Normal Canal, Hearing Grossly Normal, Normal TMs Nose: Normal Inspection, Normal Mucosa, No Blood Throat/Mouth: Normal Inspection, Normal Lips, Normal Teeth, Normal Gums, Normal Oropharynx, Normal Voice, No Airway Compromise Head: Atraumatic, Normocephalic Neck: Normal Inspection, Supple, Non-Tender, Full Range of Motion Respiratory/Chest: No Respiratory Distress, Lungs Clear, Normal Breath Sounds, No Accessory Muscle Use, Chest Non-Tender Cardiovascular: Normal Peripheral Pulses, Regular Rate, Rhythm, No Edema, No Gallop, No JVD, No Murmur, No Rub GI/Abdominal: Normal Bowel Sounds, Soft, Non-Tender, No Organomegaly, No Distention, No Abnormal Bruit, No Mass (Female) Exam: Deferred Rectal (Female) Exam: Deferred Extremities: Leg Pain (left leg pain (mid thigh to mid lower leg) ) Neurological: Alert, Oriented, CN II-XII Intact Psychiatric: Normal Affect, Normal Mood Skin Exam: Warm, Dry, Intact, Normal Color, No Rash Lymphatic: No Adenopathy Departure - Departure Disposition: Admitted As Inpatient 66 Clinical Impression: Thrombosis of left saphenous vein, Degenerative disc disease, lumbar Popliteal cyst Qualifiers: Laterality: left Qualified Code(s): M71.22 - Synovial cyst of popliteal space [Cabezas], left knee - Discharge Information Sepsis Event Note (ED) - Evaluation Sepsis Screening Result: No Definite Risk <Simeon Treviño - Last Filed: 10/18/20 21:45> Course - Vital Signs Last Recorded V/S: Last Vital Signs Temp 98.3 F 10/18/20 21:20 Pulse 63 10/18/20 21:20 Resp 17 10/18/20 21:20 BP 130/98 H 10/18/20 21:20 Pulse Ox 97 10/18/20 21:20 - Orders/Labs/Meds Orders: Medication Orders Acetaminophen (Acetaminophen 325 Mg Tab) 650 mg PO Q4H PRN PRN Reason: Pain (Mild 1-3)/fever Hydrocodone Bitart/Acetaminophen (Acetaminophen/Hydrocodone 325-5 Mg Tab) 1 tab PO Q4H PRN PRN Reason: Pain (moderate 4-6) Dextrose/Water (50% Dextrose In Water 50 Ml Syringe) 50 ml IVPUSH Q15M PRN PRN Reason: Hypoglycemia Glucagon (Glucagon,Human Recombinant 1 Mg Vial) 1 mg IM Q15M PRN PRN Reason: Hypoglycemia Insulin Human Lispro (Insulin Lispro 100 Units/Ml 3 Ml Vial) 0 unit SUBCUT WITHMEALSANDBED TWILA; Protocol Morphine Sulfate (Morphine 2 Mg/Ml Syringe) 1 mg IVPUSH Q4H PRN PRN Reason: Pain (severe 7-10) Ondansetron HCl (Ondansetron 4 Mg/2 Ml Sdv) 4 mg IVPUSH Q4H PRN PRN Reason: Nausea/Vomiting Sodium Chloride (Sodium Chloride 0.9% 10 Ml Syringe) 10 ml FLUSH ASDIRECTED PRN PRN Reason: Keep Vein Open Labs: Laboratory Tests 10/18/20 10/18/20 10/18/20 Range/Units 16:23 16:23 16:23 WBC 5.3 (5.0-10.0) 10^3/uL RBC 4.31 (4.2-5.4) 10^6/uL Hgb 10.8 L (12.0-16.0) g/dL Hct 34.7 L (37.0-47.0) % MCV 80.5 (80-100) fL MCH 25.1 L (27.0-34.0) pg MCHC 31.1 L (33.0-35.0) g/dL Plt Count 219 (150-450) 10^3/uL Neut % (Auto) 64.8 (42.2-75.2) % Lymph % (Auto) 22.1 (20.5-50.1) % [place] % (Auto) 11.0 H (2-8) % Eos % (Auto) 1.7 (1.0-3.0) % Baso % (Auto) 0.4 (0.0-1.0) % PT 11.1 (9.0-12.0) SEC INR 1.1 (0.9-1.2) D-Dimer, Quantitative 234 (0-400) ng/mL Sodium 143 (136-145) mmol/L Potassium 4.0 (3.5-5.1) mmol/L Chloride 106 (98-107) mmol/L Carbon Dioxide 26 (21-32) mmol/L Anion Gap 15.0 H (7-13) mEq/L BUN 15 (7-18) mg/dL Creatinine 0.93 (0.55-1.02) mg/dL Est Cr Clr Drug Dosing TNP Estimated GFR (MDRD) 57 BUN/Creatinine Ratio 16.1 (No establ ref range) Glucose 121 H (70-99) mg/dL Calcium 9.1 (8.5-10.1) mg/dL Total Bilirubin 0.9 (0.2-1.0) mg/dL AST 14 L (15-37) U/L ALT 17 (14-59) U/L Alkaline Phosphatase 82 (46-116) U/L Total Protein 6.7 (6.4-8.2) g/dL Albumin 3.0 L (3.4-5.0) g/dL Globulin 3.7 Albumin/Globulin Ratio 0.81 SARS-CoV-2 RNA (BE) (NEGATIVE) 10/18/20 Range/Units 19:26 WBC (5.0-10.0) 10^3/uL RBC (4.2-5.4) 10^6/uL Hgb (12.0-16.0) g/dL Hct (37.0-47.0) % MCV (80-100) fL MCH (27.0-34.0) pg MCHC (33.0-35.0) g/dL Plt Count (150-450) 10^3/uL Neut % (Auto) (42.2-75.2) % Lymph % (Auto) (20.5-50.1) % [place] % (Auto) (2-8) % Eos % (Auto) (1.0-3.0) % Baso % (Auto) (0.0-1.0) % PT (9.0-12.0) SEC INR (0.9-1.2) D-Dimer, Quantitative (0-400) ng/mL Sodium (136-145) mmol/L Potassium (3.5-5.1) mmol/L Chloride (98-107) mmol/L Carbon Dioxide (21-32) mmol/L Anion Gap (7-13) mEq/L BUN (7-18) mg/dL Creatinine (0.55-1.02) mg/dL Est Cr Clr Drug Dosing Estimated GFR (MDRD) BUN/Creatinine Ratio (No establ ref range) Glucose (70-99) mg/dL Calcium (8.5-10.1) mg/dL Total Bilirubin (0.2-1.0) mg/dL AST (15-37) U/L ALT (14-59) U/L Alkaline Phosphatase (46-116) U/L Total Protein (6.4-8.2) g/dL Albumin (3.4-5.0) g/dL Globulin Albumin/Globulin Ratio SARS-CoV-2 RNA (BE) Negative (NEGATIVE) Meds: Medications Generic Name Dose Route Start Last Admin Trade Name Freq PRN Reason Stop Dose Admin Acetaminophen 650 mg 10/18/20 21:31 Acetaminophen 325 Mg Tab PO Q4H PRN Pain (Mild 1-3)/fever Hydrocodone Bitart/Acetaminophen 1 tab 10/18/20 21:37 Acetaminophen/Hydrocodone 325-5 Mg Tab PO Q4H PRN Pain (moderate 4-6) Dextrose/Water 50 ml 10/18/20 21:38 50% Dextrose In Water 50 Ml Syringe IVPUSH Q15M PRN Hypoglycemia Glucagon 1 mg 10/18/20 21:38 Glucagon,Human Recombinant 1 Mg Vial IM Q15M PRN Hypoglycemia Insulin Human Lispro 0 unit 10/19/20 08:00 Insulin Lispro 100 Units/Ml 3 Ml Vial SUBCUT WITHMEALSANDLEONARD TWILA Karl Morphine Sulfate 1 mg 10/18/20 21:31 Morphine 2 Mg/Ml Syringe IVPUSH Q4H PRN Pain (severe 7-10) Ondansetron HCl 4 mg 10/18/20 21:31 Ondansetron 4 Mg/2 Ml Sdv IVPUSH Q4H PRN Nausea/Vomiting Sodium Chloride 10 ml 10/18/20 21:31 Sodium Chloride 0.9% 10 Ml Syringe FLUSH ASDIRECTED PRN Keep Vein Open - Re-Assessments/Exams Free Text/Narrative Re-Assessment/Exam: Report received from Isma Galindo at 1730pm. Reviewed US results with patient and son. Patient could not move her left leg without support. Consulted with Dr. Wong in house Hospitalist pediatric nurse practitioner who requested for Lumbar xray. Lumbar xrays done and results were reviewed with patient and son. Dr. Wong accepted patient for admission. Patient and Son in agreement. Departure - Departure Time of Disposition: 21:05 Condition: Fair Sepsis Event Note (ED) - Focused Exam Vital Signs: Vital Signs Temp Pulse Resp BP Pulse Ox 10/18/20 16:17 97.8 F 69 16 140/79 96
--- NOTE | 2020-10-18 19:59 | CR ---
PROCEDURE INFORMATION: Exam: XR Lumbosacral Spine Exam date and time: 10/18/2020 7:13 PM Age: 85 years old Clinical indication: Other: Pain down left leg; Additional info: Left leg pain TECHNIQUE: Imaging protocol: XR of the lumbosacral spine. Views: 2 or 3 views. COMPARISON: MR Lumbar Spine Comp wo Cont 12/03/2015 1:53 PM FINDINGS: Bones/joints: There are 5 [id number] lumbar vertebral bodies. There is a mild rotatory levoscoliosis centered at L3. There is grade 1 anterolisthesis of L4 upon L5. No acute fractures or aggressive bone lesions are identified. There is preservation of the vertebral body heights. There is advanced degenerative disc disease with disc space foreshortening, endplate sclerosis and proliferative osteophyte formation which is most pronounced at L2-L3 and L3-L4. The sacroiliac joints are symmetric. Soft tissues: Within normal limits. Gastrointestinal tract: There is a large volume of stool in the colon. Surgical sutures in the right mid abdomen suggesting prior bowel resection. Organs: There is a lamellated gallstone in the right upper quadrant. Vasculature: There is an IVC filter in the upper abdomen. IMPRESSION: Advanced degenerative disc disease, especially at L2-L3 and L3-L4. No acute fractures or aggressive bone lesions are identified.
[2020-10-18] MEDS ORDERED: Ondansetron 4 MG/2 ML SDV IVPUSH PRN (21:31)
[2020-10-18] MEDS ORDERED: Morphine 2 MG/ML SYRINGE IVPUSH PRN (21:31)
[2020-10-18] MEDS ORDERED: Sodium Chloride 0.9% 10 ML Syringe FLUSH PRN (21:31)
[2020-10-18] MEDS ORDERED: Acetaminophen 325 MG Tab PO PRN (21:31)
[2020-10-18] MEDS ORDERED: Acetaminophen/HYDROcodone 325-5 MG Tab PO PRN (21:37)
[2020-10-18] MEDS ORDERED: Glucagon,Human Recombinant 1 MG Vial IM PRN (21:38)
[2020-10-18] MEDS ORDERED: 50% Dextrose in Water 50 ML Syringe IVPUSH PRN (21:38)
--- NOTE | 2020-10-18 21:42 | PCM.HP ---
H&P History of Present Illness - General Date of Service: 10/18/20 Admit Problem/Dx: Admission Diagnosis/Problem Admission Diagnosis/Problem Leg cramp - History of Present Illness Initial Comments - Free Text/Narative: The patient is an 85-year-old female who presents complaint of left leg pain/weakness. Please note that the patient is very hard of hearing and unable to provide much in terms of history of present illness however her son accompanies her and he indicates that she has had approximately 48-hour history of left leg pain and weakness and she sustained a fall leading up to her hospitalization as well. Aside from this the patient endorses no complaints and she presents for further evaluation Left Leg Pain Score (Numeric/FACES): 8 - Related Data Allergies/Adverse Reactions: Allergies Allergy/AdvReac Type Severity Reaction Status Date / Time atorvastatin calcium Allergy Leg Cramps Verified 10/18/20 21:25 [From Lipitor] warfarin sodium Allergy Dizziness Verified 10/18/20 21:25 [From Coumadin] Home Medications: Home Meds Lisinopril 40 mg PO DAILY 10/12/15 [History] Simvastatin [Zocor] 40 mg PO BEDTIME 10/12/15 [History] Apixaban [Eliquis] 5 mg PO BID 06/02/20 [History] metFORMIN [Glucophage] 500 mg PO BIDMEALS 06/02/20 [History] Acetaminophen 650 mg PO BID 06/22/20 [History] Multivits,Ca,Minerals/Iron/FA [Thera-Tabs M Caplet] 1 tab PO DAILY 06/22/20 [History] amLODIPine [Norvasc] 5 mg PO DAILY 06/22/20 [History] Ferrous Fumarate 324 mg PO BID 10/18/20 [History] Past Medical History HEENT History: Reports: Hard of Hearing, Impaired Vision Other HEENT History: wears glasses Cardiovascular History: Reports: Blood Clots/VTE/DVT, Hypertension Respiratory History: Reports: None Gastrointestinal History: Reports: Diverticulosis, GI Bleed, Hiatal Hernia Genitourinary History: Reports: Chronic Renal Insuffiency 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: Musculoskeletal History: Reports: Osteoarthritis Neurological History: Reports: None Psychiatric History: Reports: None Endocrine/Metabolic History: Reports: Diabetes, Type II Hematologic History: Reports: Anemia, Iron Deficiency Immunologic History: Reports: None Oncologic (Cancer) History: Reports: Colon Dermatologic History: Reports: None - Infectious Disease History Infectious Disease History: Reports: Other (See Below) Other Infectious Disease History: does not remember - Past Surgical History Head Surgeries/Procedures: Reports: None HEENT Surgical History: Reports: Cataract Surgery, Tonsillectomy Other HEENT Surgeries/Procedures: bilateral eyes. Cardiovascular Surgical History: Reports: Other (See Below) Other Cardiovascular Surgeries/Procedures: VENA C[employer] UMBRE[employer] PLACEMENT Respiratory Surgical History: Reports: None GI Surgical History: Reports: Colonoscopy, EGD, Hernia Repair/Other Female Surgical History: Reports: Hysterectomy Endocrine Surgical History: Reports: None Neurological Surgical History: Reports: None Oncologic Surgical History: Reports: None Dermatological Surgical History: Reports: None Social & Family History - Family History Family Medical History: No Pertinent Family History Cardiac: Reports: High Cholesterol, Hypertension Endocrine/Metabolic: Reports: Diabetes, type II - Tobacco Use Tobacco Use Status *Q: Never Tobacco User - Caffeine Use Caffeine Use: Reports: Coffee Caffeine Use Comment: rare - Recreational Drug Use Recreational Drug Use: No - Living Situation & Occupation Occupation: Retired H&P Review of Systems - Review of Systems: Review Of Systems: See Below General: Reports: No Symptoms HEENT: Reports: No Symptoms Pulmonary: Reports: No Symptoms Cardiovascular: Reports: No Symptoms Gastrointestinal: Reports: No Symptoms Genitourinary: Reports: No Symptoms Musculoskeletal: Reports: No Symptoms Skin: Reports: No Symptoms Psychiatric: Reports: No Symptoms Neurological: Reports: No Symptoms Hematologic/Lymphatic: Reports: No Symptoms Immunologic: Reports: No Symptoms Exam - Exam Exam: See Below - Vital Signs Vital Signs: Last Vital Signs Temp 98.3 F 10/18/20 21:20 Pulse 63 10/18/20 21:20 Resp 17 10/18/20 21:20 BP 130/98 H 10/18/20 21:20 Pulse Ox 97 10/18/20 21:20 Weight: 130 lb - Exam General: Alert, Oriented, 4 HEENT: PERRLA, Hearing Intact, Mucosa Moist & [place], Nares Patent, Normal Nasal Septum, Posterior Pharynx Clear, Conjunctiva Clear, EOMI, EACs Clear, TMs Clear Neck: Supple, Trachea Midline, 2 Lungs: Clear to Auscultation, Normal Respiratory Effort Cardiovascular: Regular Rate, Regular Rhythm GI/Abdominal Exam: Normal Bowel Sounds, Soft, Non-Tender, No Organomegaly, No D istention, No Abnormal Bruit, No Mass, Pelvis Stable Back Exam: Normal Inspection, Full Range of Motion, NT Extremities: Normal Inspection, Normal Range of Motion, Non-Tender, No Pedal Edema, Normal Capillary Refill Peripheral Pulses: 2+: Carotid (L), Carotid (R), Brachial (L), Brachial (R), Radial (L), Radial (R), Femoral (L), Femoral (R), Popliteal (L), Popliteal (R), Posterior Tibial (L), Posterior Tibial (R), Dorsalis Pedis (L), Dorsalis Pedis (R) Skin: Warm, Dry, Intact Neurological: Cranial Nerves Intact, Reflexes Equal Bilateral Neuro Extensive - Mental Status: Alert, Oriented x3, Normal Mood/Affect, Normal Cognition Neuro Extensive - Motor, Sensory, Reflexes: CN II-XII Intact, Normal Gait, Normal Reflexes DTR: 2+: Bicep (L), Bicep (R), Tricep (L), Tricep (R), Patella (L), Patella (R), Achilles (L), Achilles (R) Psychiatric: Alert, Normal Affect, Normal Mood - Patient Data Lab Results Last 24 hrs: Laboratory Results - last 24 hr 10/18/20 10/18/20 10/18/20 Range/Units 16:23 16:23 16:23 WBC 5.3 (5.0-10.0) 10^3/uL RBC 4.31 (4.2-5.4) 10^6/uL Hgb 10.8 L (12.0-16.0) g/dL Hct 34.7 L (37.0-47.0) % MCV 80.5 (80-100) fL MCH 25.1 L (27.0-34.0) pg MCHC 31.1 L (33.0-35.0) g/dL Plt Count 219 (150-450) 10^3/uL Neut % (Auto) 64.8 (42.2-75.2) % Lymph % (Auto) 22.1 (20.5-50.1) % [place] % (Auto) 11.0 H (2-8) % Eos % (Auto) 1.7 (1.0-3.0) % Baso % (Auto) 0.4 (0.0-1.0) % PT 11.1 (9.0-12.0) SEC INR 1.1 (0.9-1.2) D-Dimer, Quantitative 234 (0-400) ng/mL Sodium 143 (136-145) mmol/L Potassium 4.0 (3.5-5.1) mmol/L Chloride 106 (98-107) mmol/L Carbon Dioxide 26 (21-32) mmol/L Anion Gap 15.0 H (7-13) mEq/L BUN 15 (7-18) mg/dL Creatinine 0.93 (0.55-1.02) mg/dL Est Cr Clr Drug Dosing TNP Estimated GFR (MDRD) 57 BUN/Creatinine Ratio 16.1 (No establ ref range) Glucose 121 H (70-99) mg/dL Calcium 9.1 (8.5-10.1) mg/dL Total Bilirubin 0.9 (0.2-1.0) mg/dL AST 14 L (15-37) U/L ALT 17 (14-59) U/L Alkaline Phosphatase 82 (46-116) U/L Total Protein 6.7 (6.4-8.2) g/dL Albumin 3.0 L (3.4-5.0) g/dL Globulin 3.7 Albumin/Globulin Ratio 0.81 SARS-CoV-2 RNA (BE) (NEGATIVE) 10/18/20 Range/Units 19:26 WBC (5.0-10.0) 10^3/uL RBC (4.2-5.4) 10^6/uL Hgb (12.0-16.0) g/dL Hct (37.0-47.0) % MCV (80-100) fL MCH (27.0-34.0) pg MCHC (33.0-35.0) g/dL Plt Count (150-450) 10^3/uL Neut % (Auto) (42.2-75.2) % Lymph % (Auto) (20.5-50.1) % [place] % (Auto) (2-8) % Eos % (Auto) (1.0-3.0) % Baso % (Auto) (0.0-1.0) % PT (9.0-12.0) SEC INR (0.9-1.2) D-Dimer, Quantitative (0-400) ng/mL Sodium (136-145) mmol/L Potassium (3.5-5.1) mmol/L Chloride (98-107) mmol/L Carbon Dioxide (21-32) mmol/L Anion Gap (7-13) mEq/L BUN (7-18) mg/dL Creatinine (0.55-1.02) mg/dL Est Cr Clr Drug Dosing Estimated GFR (MDRD) BUN/Creatinine Ratio (No establ ref range) Glucose (70-99) mg/dL Calcium (8.5-10.1) mg/dL Total Bilirubin (0.2-1.0) mg/dL AST (15-37) U/L ALT (14-59) U/L Alkaline Phosphatase (46-116) U/L Total Protein (6.4-8.2) g/dL Albumin (3.4-5.0) g/dL Globulin Albumin/Globulin Ratio SARS-CoV-2 RNA (BE) Negative (NEGATIVE) Result Diagrams: 10/18/20 16:23 10/18/20 16:23 Problem List Initiated/Reviewed/Updated: Yes Orders Last 24hrs: Active Orders 24 hr Category Date Time Status Patient Status [ADT] Routine ADT 10/18/20 21:34 Ordered Antiembolic Devices [RC] PER UNIT ROUTINE Care 10/18/20 21:36 Ordered Blood Glucose Check, Bedside [RC] WITHMEALSANDBED Care 10/18/20 21:31 Ordered Oxygen Therapy [RC] PRN Care 10/18/20 21:34 Ordered Peripheral IV Care [RC] . DIRECTED Care 10/18/20 21:36 Ordered Up With Assistance [RC] ASDIRECTED Care 10/18/20 21:31 Ordered Vital Signs [RC] Q4H Care 10/18/20 21:34 Ordered Consult to Case Management/Vocational Instructor [CONS] Cons 10/18/20 21:31 Ordered Routine OT Evaluation and Treatment [CONS] Routine Cons 10/18/20 21:31 Ordered PT Evaluation and Treatment [CONS] Routine Cons 10/18/20 21:31 Ordered Consistent Carbohydrate Diet [DIET] Diet 10/18/20 Dinner Ordered FERRITIN [CHEM] Routine Lab 10/18/20 21:37 Ordered HGB [HEMOGLOBIN] [HEME] Routine Lab 10/19/20 05:00 Ordered IRON/TIBC [CHEM] Routine Lab 10/18/20 21:37 Ordered OCCULT BLOOD DIAGNOSTIC [OP] Routine Lab 10/18/20 21:37 Ordered Acetaminophen [TylenoL] Med 10/18/20 21:31 Ordered 650 mg PO Q4H PRN Acetaminophen/HYDROcodone [[place] 325-5 MG] Med 10/18/20 21:37 Ordered 1 tab PO Q4H PRN Dextrose 50% in Water Med 10/18/20 21:38 Ordered 50 ml IVPUSH Q15M PRN Glucagon,Human Recombinant [GlucaGen] Med 10/18/20 21:38 Ordered 1 mg IM Q15M PRN Insulin Lispro [HumaLOG] Med 10/19/20 08:00 Ordered See Protocol SUBCUT WITHMEALSANDBED Morphine Med 10/18/20 21:31 Ordered 1 mg IVPUSH Q4H PRN Ondansetron [Zofran] Med 10/18/20 21:31 Ordered 4 mg IVPUSH Q4H PRN Sodium Chloride 0.9% [Saline Flush] Med 10/18/20 21:31 Ordered 10 ml FLUSH ASDIRECTED PRN Antiembolic Hose [OM.PC] Per Unit Routine Oth 10/18/20 21:35 Ordered Peripheral IV Insertion Adult [OM.PC] Routine Oth 10/18/20 21:31 Ordered Saline Lock Insert [OM.PC] Routine Oth 10/18/20 21:31 Ordered Resuscitation Status Routine Resus Stat 10/18/20 21:31 Ordered Medication Orders Acetaminophen (Acetaminophen 325 Mg Tab) 650 mg PO Q4H PRN PRN Reason: Pain (Mild 1-3)/fever Morphine Sulfate (Morphine 2 Mg/Ml Syringe) 1 mg IVPUSH Q4H PRN PRN Reason: Pain (severe 7-10) Ondansetron HCl (Ondansetron 4 Mg/2 Ml Sdv) 4 mg IVPUSH Q4H PRN PRN Reason: Nausea/Vomiting Sodium Chloride (Sodium Chloride 0.9% 10 Ml Syringe) 10 ml FLUSH ASDIRECTED PRN PRN Reason: Keep Vein Open Assessment/Plan Comment:: Surgical History: IVC filter placement, bilateral cataract surgery, right hemicolectomy, tonsillectomy, hysterectomy, there is previous documentation of herniorrhaphynot otherwise specified which the patient denies Family History: Cancer, diabetes, hypertension, hyperlipidemia Social History: Tobacco: Former smoker Alcohol: Denies Caffeine: Coffee, cola Drugs: Never Allergies: Lipitor, Coumadin/warfarin Code Status: Full Assessment / Plan: Left leg pain. Minimal. As needed analgesia. Physical therapy consult. Occupational Therapy consult. Case management evaluation for potential need for placement History of cholelithiasis Osteoarthritis Diverticulosis History of colon cancer, status post right hemicolectomy. 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 Outpatient follow-up with her primary care physician or with a provider History of thyroid mass, query goiter. Outpatient follow-up with her primary care physician or with a provider Anemia with history of iron deficiency. Will monitor hemoglobin levels intermittently. Check serum ferritin, iron panel, fecal occult blood Diabetes. Will check fasting glucose before every meal and at bedtime and provide sulci scale GERD Hyperlipidemia Hypertension Degenerative's disease Degenerative joint disease Spinal stenosis DVT prophylaxis. Bilateral VLADIMIR hose Disposition: Anticipate discharge within 24 hours unless patient requires placement for which I will discuss with physical therapy, Occupational Therapy, and social work/case management. At the time of admission, the patient's home medications were pending input into the EMR/DHR system. Once their input, they will be reviewed and reconciled END OF DOCTOR EMAMIS HISTORY AND PHYSICAL / CONSULTATION NOTE
--- NOTE | 2020-10-19 07:01 | PCM.PN ---
- General Info Date of Service: 10/19/20 Subjective Update: The patient complains of mild left anterior leg pain just distal to the patella. Aside from this she endorses no complaints. She denies paresthesia/anesthesia of either lower extremity. She denies fever, rigors, nausea, vomiting, cough, wheeze, abdominal pain, chest pain, dyspnea, or any other constitutional complaints. I explained to the patient her current medical condition and plan of care have answered all of her questions Functional Status: Reports: Pain Controlled - Review of Systems General: Reports: No Symptoms HEENT: Reports: No Symptoms Pulmonary: Reports: No Symptoms Cardiovascular: Reports: No Symptoms Gastrointestinal: Reports: No Symptoms Genitourinary: Reports: No Symptoms Musculoskeletal: Reports: No Symptoms Skin: Reports: No Symptoms Neurological: Reports: No Symptoms Psychiatric: Reports: No Symptoms - Patient Data Vitals - Most Recent: Last Vital Signs Temp 98.2 F 10/19/20 03:46 Pulse 74 10/19/20 03:46 Resp 15 10/19/20 03:46 BP 124/58 L 10/19/20 03:46 Pulse Ox 96 10/19/20 03:46 Weight - Most Recent: 126 lb 14.4 oz I&O - Last 24 Hours: Intake & Output 10/18/20 10/18/20 10/19/20 14:59 22:59 06:59 Intake Total 240 Output Total 750 Balance -510 Lab Results Last 24 Hours: Laboratory Results - last 24 hr 10/18/20 10/18/20 10/18/20 Range/Units 16:23 16:23 16:23 WBC 5.3 (5.0-10.0) 10^3/uL RBC 4.31 (4.2-5.4) 10^6/uL Hgb 10.8 L (12.0-16.0) g/dL Hct 34.7 L (37.0-47.0) % MCV 80.5 (80-100) fL MCH 25.1 L (27.0-34.0) pg MCHC 31.1 L (33.0-35.0) g/dL Plt Count 219 (150-450) 10^3/uL Neut % (Auto) 64.8 (42.2-75.2) % Lymph % (Auto) 22.1 (20.5-50.1) % [place] % (Auto) 11.0 H (2-8) % Eos % (Auto) 1.7 (1.0-3.0) % Baso % (Auto) 0.4 (0.0-1.0) % PT 11.1 (9.0-12.0) SEC INR 1.1 (0.9-1.2) D-Dimer, Quantitative 234 (0-400) ng/mL Sodium 143 (136-145) mmol/L Potassium 4.0 (3.5-5.1) mmol/L Chloride 106 (98-107) mmol/L Carbon Dioxide 26 (21-32) mmol/L Anion Gap 15.0 H (7-13) mEq/L BUN 15 (7-18) mg/dL Creatinine 0.93 (0.55-1.02) mg/dL Est Cr Clr Drug Dosing TNP Estimated GFR (MDRD) 57 BUN/Creatinine Ratio 16.1 (No establ ref range) Glucose 121 H (70-99) mg/dL POC Glucose (70-99) mg/dL Calcium 9.1 (8.5-10.1) mg/dL Iron (50-175) ug/dL TIBC (250-450) ug/dL % Saturation (20.0-50.0) % Ferritin (8-252) mg/mL Total Bilirubin 0.9 (0.2-1.0) mg/dL AST 14 L (15-37) U/L ALT 17 (14-59) U/L Alkaline Phosphatase 82 (46-116) U/L Total Protein 6.7 (6.4-8.2) g/dL Albumin 3.0 L (3.4-5.0) g/dL Globulin 3.7 Albumin/Globulin Ratio 0.81 SARS-CoV-2 RNA (BE) (NEGATIVE) 10/18/20 10/18/20 10/18/20 Range/Units 16:23 19:26 21:50 WBC (5.0-10.0) 10^3/uL RBC (4.2-5.4) 10^6/uL Hgb (12.0-16.0) g/dL Hct (37.0-47.0) % MCV (80-100) fL MCH (27.0-34.0) pg MCHC (33.0-35.0) g/dL Plt Count (150-450) 10^3/uL Neut % (Auto) (42.2-75.2) % Lymph % (Auto) (20.5-50.1) % [place] % (Auto) (2-8) % Eos % (Auto) (1.0-3.0) % Baso % (Auto) (0.0-1.0) % PT (9.0-12.0) SEC INR (0.9-1.2) D-Dimer, Quantitative (0-400) ng/mL Sodium (136-145) mmol/L Potassium (3.5-5.1) mmol/L Chloride (98-107) mmol/L Carbon Dioxide (21-32) mmol/L Anion Gap (7-13) mEq/L BUN (7-18) mg/dL Creatinine (0.55-1.02) mg/dL Est Cr Clr Drug Dosing Estimated GFR (MDRD) BUN/Creatinine Ratio (No establ ref range) Glucose (70-99) mg/dL POC Glucose 133 H (70-99) mg/dL Calcium (8.5-10.1) mg/dL Iron 47 L (50-175) ug/dL TIBC 304 (250-450) ug/dL % Saturation 15.5 L (20.0-50.0) % Ferritin 24 (8-252) mg/mL Total Bilirubin (0.2-1.0) mg/dL AST (15-37) U/L ALT (14-59) U/L Alkaline Phosphatase (46-116) U/L Total Protein (6.4-8.2) g/dL Albumin (3.4-5.0) g/dL Globulin Albumin/Globulin Ratio SARS-CoV-2 RNA (BE) Negative (NEGATIVE) 10/19/20 Range/Units 05:15 WBC (5.0-10.0) 10^3/uL RBC (4.2-5.4) 10^6/uL Hgb 10.8 L (12.0-16.0) g/dL Hct (37.0-47.0) % MCV (80-100) fL MCH (27.0-34.0) pg MCHC (33.0-35.0) g/dL Plt Count (150-450) 10^3/uL Neut % (Auto) (42.2-75.2) % Lymph % (Auto) (20.5-50.1) % [place] % (Auto) (2-8) % Eos % (Auto) (1.0-3.0) % Baso % (Auto) (0.0-1.0) % PT (9.0-12.0) SEC INR (0.9-1.2) D-Dimer, Quantitative (0-400) ng/mL Sodium (136-145) mmol/L Potassium (3.5-5.1) mmol/L Chloride (98-107) mmol/L Carbon Dioxide (21-32) mmol/L Anion Gap (7-13) mEq/L BUN (7-18) mg/dL Creatinine (0.55-1.02) mg/dL Est Cr Clr Drug Dosing Estimated GFR (MDRD) BUN/Creatinine Ratio (No establ ref range) Glucose (70-99) mg/dL POC Glucose (70-99) mg/dL Calcium (8.5-10.1) mg/dL Iron (50-175) ug/dL TIBC (250-450) ug/dL % Saturation (20.0-50.0) % Ferritin (8-252) mg/mL Total Bilirubin (0.2-1.0) mg/dL AST (15-37) U/L ALT (14-59) U/L Alkaline Phosphatase (46-116) U/L Total Protein (6.4-8.2) g/dL Albumin (3.4-5.0) g/dL Globulin Albumin/Globulin Ratio SARS-CoV-2 RNA (BE) (NEGATIVE) Med Orders - Current: Current Medications Acetaminophen (Acetaminophen 325 Mg Tab) 650 mg PO Q4H PRN PRN Reason: Pain (Mild 1-3)/fever Last Admin: 10/19/20 01:18 Dose: 650 mg Documented by: Hydrocodone Bitart/Acetaminophen (Acetaminophen/Hydrocodone 325-5 Mg Tab) 1 tab PO Q4H PRN PRN Reason: Pain (moderate 4-6) Ascorbic Acid (Ascorbic Acid 500 Mg Tab) 500 mg PO DAILY [facility] Dextrose/Water (50% Dextrose In Water 50 Ml Syringe) 50 ml IVPUSH Q15M PRN PRN Reason: Hypoglycemia Ferrous Sulfate (Ferrous Sulfate 325 Mg Tab) 325 mg PO BIDMEALS [facility] Glucagon (Glucagon,Human Recombinant 1 Mg Vial) 1 mg IM Q15M PRN PRN Reason: Hypoglycemia Insulin Human Lispro (Insulin Lispro 100 Units/Ml 3 Ml Vial) 0 unit SUBCUT WITHMEALSANDBED TWILA; Protocol Morphine Sulfate (Morphine 2 Mg/Ml Syringe) 1 mg IVPUSH Q4H PRN PRN Reason: Pain (severe 7-10) Ondansetron HCl (Ondansetron 4 Mg/2 Ml Sdv) 4 mg IVPUSH Q4H PRN PRN Reason: Nausea/Vomiting Sodium Chloride (Sodium Chloride 0.9% 10 Ml Syringe) 10 ml FLUSH ASDIRECTED PRN PRN Reason: Keep Vein Open - Exam General: Alert, Oriented HEENT: Pupils Equal, Pupils Reactive, EOMI, Mucous Membr. Moist/[place] Neck: Supple Lungs: Clear to Auscultation, Normal Respiratory Effort Cardiovascular: Regular Rate, Regular Rhythm GI/Abdominal Exam: Normal Bowel Sounds, Soft, Non-Tender, No Organomegaly, No Distention, No Abnormal Bruit, No Mass, Pelvis Stable Back Exam: Normal Inspection, Full Range of Motion Extremities: Normal Inspection, Normal Range of Motion, Non-Tender, No Pedal Edema, Normal Capillary Refill Peripheral Pulses: 2+: Carotid (L), Carotid (R), Brachial (L), Brachial (R), Radial (L), Radial (R), Femoral (L), Femoral (R), Popliteal (L), Popliteal (R), Posterior Tibial (L), Posterior Tibial (R), Dorsalis Pedis (L), Dorsalis Pedis (R) Skin: Warm, Dry, Intact Wound/Incisions: Healing Well Neurological: No New Focal Deficit Psy/Mental Status: Alert, Normal Affect, Normal Mood - Patient Data Lab Results Last 24 hrs: Laboratory Results - last 24 hr 10/18/20 10/18/20 10/18/20 Range/Units 16:23 16:23 16:23 WBC 5.3 (5.0-10.0) 10^3/uL RBC 4.31 (4.2-5.4) 10^6/uL Hgb 10.8 L (12.0-16.0) g/dL Hct 34.7 L (37.0-47.0) % MCV 80.5 (80-100) fL MCH 25.1 L (27.0-34.0) pg MCHC 31.1 L (33.0-35.0) g/dL Plt Count 219 (150-450) 10^3/uL Neut % (Auto) 64.8 (42.2-75.2) % Lymph % (Auto) 22.1 (20.5-50.1) % [place] % (Auto) 11.0 H (2-8) % Eos % (Auto) 1.7 (1.0-3.0) % Baso % (Auto) 0.4 (0.0-1.0) % PT 11.1 (9.0-12.0) SEC INR 1.1 (0.9-1.2) D-Dimer, Quantitative 234 (0-400) ng/mL Sodium 143 (136-145) mmol/L Potassium 4.0 (3.5-5.1) mmol/L Chloride 106 (98-107) mmol/L Carbon Dioxide 26 (21-32) mmol/L Anion Gap 15.0 H (7-13) mEq/L BUN 15 (7-18) mg/dL Creatinine 0.93 (0.55-1.02) mg/dL Est Cr Clr Drug Dosing TNP Estimated GFR (MDRD) 57 BUN/Creatinine Ratio 16.1 (No establ ref range) Glucose 121 H (70-99) mg/dL POC Glucose (70-99) mg/dL Calcium 9.1 (8.5-10.1) mg/dL Iron (50-175) ug/dL TIBC (250-450) ug/dL % Saturation (20.0-50.0) % Ferritin (8-252) mg/mL Total Bilirubin 0.9 (0.2-1.0) mg/dL AST 14 L (15-37) U/L ALT 17 (14-59) U/L Alkaline Phosphatase 82 (46-116) U/L Total Protein 6.7 (6.4-8.2) g/dL Albumin 3.0 L (3.4-5.0) g/dL Globulin 3.7 Albumin/Globulin Ratio 0.81 SARS-CoV-2 RNA (BE) (NEGATIVE) 10/18/20 10/18/20 10/18/20 Range/Units 16:23 19:26 21:50 WBC (5.0-10.0) 10^3/uL RBC (4.2-5.4) 10^6/uL Hgb (12.0-16.0) g/dL Hct (37.0-47.0) % MCV (80-100) fL MCH (27.0-34.0) pg MCHC (33.0-35.0) g/dL Plt Count (150-450) 10^3/uL Neut % (Auto) (42.2-75.2) % Lymph % (Auto) (20.5-50.1) % [place] % (Auto) (2-8) % Eos % (Auto) (1.0-3.0) % Baso % (Auto) (0.0-1.0) % PT (9.0-12.0) SEC INR (0.9-1.2) D-Dimer, Quantitative (0-400) ng/mL Sodium (136-145) mmol/L Potassium (3.5-5.1) mmol/L Chloride (98-107) mmol/L Carbon Dioxide (21-32) mmol/L Anion Gap (7-13) mEq/L BUN (7-18) mg/dL Creatinine (0.55-1.02) mg/dL Est Cr Clr Drug Dosing Estimated GFR (MDRD) BUN/Creatinine Ratio (No establ ref range) Glucose (70-99) mg/dL POC Glucose 133 H (70-99) mg/dL Calcium (8.5-10.1) mg/dL Iron 47 L (50-175) ug/dL TIBC 304 (250-450) ug/dL % Saturation 15.5 L (20.0-50.0) % Ferritin 24 (8-252) mg/mL Total Bilirubin (0.2-1.0) mg/dL AST (15-37) U/L ALT (14-59) U/L Alkaline Phosphatase (46-116) U/L Total Protein (6.4-8.2) g/dL Albumin (3.4-5.0) g/dL Globulin Albumin/Globulin Ratio SARS-CoV-2 RNA (BE) Negative (NEGATIVE) 10/19/20 Range/Units 05:15 WBC (5.0-10.0) 10^3/uL RBC (4.2-5.4) 10^6/uL Hgb 10.8 L (12.0-16.0) g/dL Hct (37.0-47.0) % MCV (80-100) fL MCH (27.0-34.0) pg MCHC (33.0-35.0) g/dL Plt Count (150-450) 10^3/uL Neut % (Auto) (42.2-75.2) % Lymph % (Auto) (20.5-50.1) % [place] % (Auto) (2-8) % Eos % (Auto) (1.0-3.0) % Baso % (Auto) (0.0-1.0) % PT (9.0-12.0) SEC INR (0.9-1.2) D-Dimer, Quantitative (0-400) ng/mL Sodium (136-145) mmol/L Potassium (3.5-5.1) mmol/L Chloride (98-107) mmol/L Carbon Dioxide (21-32) mmol/L Anion Gap (7-13) mEq/L BUN (7-18) mg/dL Creatinine (0.55-1.02) mg/dL Est Cr Clr Drug Dosing Estimated GFR (MDRD) BUN/Creatinine Ratio (No establ ref range) Glucose (70-99) mg/dL POC Glucose (70-99) mg/dL Calcium (8.5-10.1) mg/dL Iron (50-175) ug/dL TIBC (250-450) ug/dL % Saturation (20.0-50.0) % Ferritin (8-252) mg/mL Total Bilirubin (0.2-1.0) mg/dL AST (15-37) U/L ALT (14-59) U/L Alkaline Phosphatase (46-116) U/L Total Protein (6.4-8.2) g/dL Albumin (3.4-5.0) g/dL Globulin Albumin/Globulin Ratio SARS-CoV-2 RNA (BE) (NEGATIVE) Result Diagrams: 10/19/20 05:15 10/18/20 16:23 Sepsis Event Note - Evaluation Sepsis Screening Result: No Definite Risk - Focused Exam Vital Signs: Vital Signs Temp Pulse Resp BP BP Pulse Ox 10/19/20 03:46 98.2 F 74 15 124/58 L 96 10/18/20 23:43 98.7 F 68 16 153/55 H 97 10/18/20 21:20 98.3 F 63 17 130/98 H 166/53 H 97 - Problem List Review Problem List Initiated/Reviewed/Updated: Yes - My Orders Last 24 Hours: My Active Orders 10/18/20 Dinner Consistent Carbohydrate Diet [DIET] 10/18/20 21:31 Blood Glucose Check, Bedside [RC] WITHMEALSANDBED Up With Assistance [RC] , Consult to Case Management/[employer] [CONS] Routine OT Evaluation and Treatment [CONS] Routine PT Evaluation and Treatment [CONS] Routine Acetaminophen [TylenoL] 650 mg PO Q4H PRN Morphine 1 mg IVPUSH Q4H PRN Ondansetron [Zofran] 4 mg IVPUSH Q4H PRN Sodium Chloride 0.9% [Saline Flush] 10 ml FLUSH ASDIRECTED PRN Peripheral IV Insertion Adult [OM.PC] Routine Saline Lock Insert [OM.PC] Routine Resuscitation Status Routine 10/18/20 21:34 Patient Status [ADT] Routine Oxygen Therapy [RC] PRN Vital Signs [RC] 00,04,08,12,16,20 10/18/20 21:35 Antiembolic Hose [OM.PC] Per Unit Routine 10/18/20 21:36 Antiembolic Devices [RC] , Peripheral IV Care [RC] . DIRECTED 10/18/20 21:37 OCCULT BLOOD DIAGNOSTIC [OP] Routine Acetaminophen/HYDROcodone [[place] 325-5 MG] 1 tab PO Q4H PRN 10/18/20 21:38 Dextrose 50% in Water 50 ml IVPUSH Q15M PRN Glucagon,Human Recombinant [GlucaGen] 1 mg IM Q15M PRN 10/19/20 08:00 Ferrous Sulfate 325 mg PO BIDMEALS Insulin Lispro [HumaLOG] See Protocol SUBCUT WITHMEALSANDBED 10/19/20 09:00 Ascorbic Acid [Vitamin C] 500 mg PO DAILY - Plan Plan:: Surgical History: IVC filter placement, bilateral cataract surgery, right hemicolectomy, tonsil lectomy, hysterectomy, there is previous documentation of herniorrhaphynot otherwise specified which the patient denies Family History: Cancer, diabetes, hypertension, hyperlipidemia Social History: Tobacco: Former smoker Alcohol: Denies Caffeine: Coffee, cola Drugs: Never Allergies: Lipitor, Coumadin/warfarin Code Status: Full Assessment / Plan: Left leg pain. Minimal. As needed analgesia. Physical therapy consult. Occupational Therapy consult. Case management evaluation for potential need for placement History of cholelithiasis Osteoarthritis Diverticulosis History of colon cancer, status post right hemicolectomy. 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 Outpatient follow-up with her primary care physician or with a provider History of thyroid mass, query goiter. Outpatient follow-up with her primary care physician or with a provider Iron deficiency anemia. Will monitor hemoglobin levels intermittently. Ferrous sulfate 325 mg p.o. twice daily plus vitamin C 500 mg p.o. daily Diabetes. Will check fasting glucose before every meal and at bedtime and provide sulci scale GERD Hyperlipidemia Hypertension Degenerative's disease Degenerative joint disease Spinal stenosis DVT prophylaxis. Bilateral VLADIMIR milian Disposition: The patient may be a candidate for discharge on this day of October 19, 2020 unless patient requires placement for which I will discuss with physical therapy, Occupational Therapy, and social work/case management. Home medications are pending input to the EMR/DHR system. Once their input, they will be reviewed and reconciled END OF DOCTOR EMAMIS HISTORY AND PHYSICAL / CONSULTATION NOTE
[2020-10-19] MEDS: Ferrous Sulfate 325 MG Tab PO SCH ×2 (08:42→17:11)
[2020-10-19] MEDS: Ascorbic Acid 500 MG Tab PO SCH (08:42)
[2020-10-19] MEDS: Insulin Lispro 100 Units/ML 3 ML Vial SUBCUT SCH ×4 (08:43→21:07)
[2020-10-19] MEDS: metFORMIN 500 MG Tab PO SCH (17:10)
[2020-10-19] MEDS ORDERED: Simvastatin 40 MG Tab PO SCH (21:00)
[2020-10-19] MEDS: Apixaban 5 MG Tab PO SCH (21:02)
[2020-10-20 03:56] VITALS: PULSE 63
--- NOTE | 2020-10-20 07:18 | PCM.PN ---
- General Info Date of Service: 10/20/20 Subjective Update: The patient endorses no complaints at this time. She denies pain of her left leg however she does admit to mild stiffness. The patient denies fever, rigors, nausea, vomiting, cough, wheeze, abdominal pain, chest pain, dyspnea, chest pain, or any other constitutional complaints. I explained to the patient her current medical condition and plan of care I have answered all of her questions Functional Status: Reports: Pain Controlled - Review of Systems General: Reports: No Symptoms HEENT: Reports: No Symptoms Pulmonary: Reports: No Symptoms Cardiovascular: Reports: No Symptoms Gastrointestinal: Reports: No Symptoms Genitourinary: Reports: No Symptoms Musculoskeletal: Reports: No Symptoms Skin: Reports: No Symptoms Neurological: Reports: No Symptoms Psychiatric: Reports: No Symptoms - Patient Data Vitals - Most Recent: Last Vital Signs Temp 97.8 F 10/20/20 03:55 Pulse 63 10/20/20 03:55 Resp 20 10/20/20 03:55 BP 166/61 H 10/20/20 03:55 Pulse Ox 95 10/20/20 03:55 Weight - Most Recent: 126 lb 14.4 oz I&O - Last 24 Hours: Intake & Output 10/19/20 10/20/20 10/20/20 22:59 06:59 14:59 Intake Total 50 Output Total 250 550 Balance -200 -550 Lab Results Last 24 Hours: Laboratory Results - last 24 hr 10/19/20 10/19/20 10/19/20 Range/Units 07:51 11:34 16:48 POC Glucose 126 H 141 H 157 H (70-99) mg/dL 10/19/20 Range/Units 20:56 POC Glucose 92 (70-99) mg/dL Med Orders - Current: Current Medications Acetaminophen (Acetaminophen 325 Mg Tab) 650 mg PO Q4H PRN PRN Reason: Pain (Mild 1-3)/fever Last Admin: 10/19/20 01:18 Dose: 650 mg Documented by: Hydrocodone Bitart/Acetaminophen (Acetaminophen/Hydrocodone 325-5 Mg Tab) 1 tab PO Q4H PRN PRN Reason: Pain (moderate 4-6) Amlodipine Besylate (Amlodipine 5 Mg Tab) 5 mg PO DAILY [facility] Apixaban (Apixaban 5 Mg Tab) 5 mg PO BID TWILA Last Admin: 10/19/20 21:02 Dose: 5 mg Documented by: Ascorbic Acid (Ascorbic Acid 500 Mg Tab) 500 mg PO DAILY [facility] Last Admin: 10/19/20 08:42 Dose: 500 mg Documented by: Dextrose/Water (50% Dextrose In Water 50 Ml Syringe) 50 ml IVPUSH Q15M PRN PRN Reason: Hypoglycemia Ferrous Sulfate (Ferrous Sulfate 325 Mg Tab) 325 mg PO BIDMEALS [facility] Last Admin: 10/19/20 17:11 Dose: 325 mg Documented by: Glucagon (Glucagon,Human Recombinant 1 Mg Vial) 1 mg IM Q15M PRN PRN Reason: Hypoglycemia Insulin Human Lispro (Insulin Lispro 100 Units/Ml 3 Ml Vial) 0 unit SUBCUT WITHMEALSANDBED [facility]; Protocol Last Admin: 10/19/20 21:07 Dose: Not Given Documented by: Lisinopril (Lisinopril 20 Mg Tab) 40 mg PO DAILY [facility] Metformin HCl (Metformin 500 Mg Tab) 500 mg PO BIDMEALS [facility] Last Admin: 10/19/20 17:10 Dose: 500 mg Documented by: Morphine Sulfate (Morphine 2 Mg/Ml Syringe) 1 mg IVPUSH Q4H PRN PRN Reason: Pain (severe 7-10) Ondansetron HCl (Ondansetron 4 Mg/2 Ml Sdv) 4 mg IVPUSH Q4H PRN PRN Reason: Nausea/Vomiting Simvastatin (Simvastatin 40 Mg Tab) 40 mg PO BEDTIME [facility] Last Admin: 10/19/20 21:02 Dose: 40 mg Documented by: Sodium Chloride (Sodium Chloride 0.9% 10 Ml Syringe) 10 ml FLUSH ASDIRECTED PRN PRN Reason: Keep Vein Open - Exam General: Alert, Oriented HEENT: Pupils Equal, Pupils Reactive, EOMI, Mucous Membr. Moist/[place] Neck: Supple Lungs: Clear to Auscultation, Normal Respiratory Effort Cardiovascular: Regular Rate, Regular Rhythm GI/Abdominal Exam: Normal Bowel Sounds, Soft, Non-Tender, No Organomegaly, No Distention, No Abnormal Bruit, No Mass, Pelvis Stable Back Exam: Normal Inspection, Full Range of Motion Extremities: Normal Inspection, Normal Range of Motion, Non-Tender, No Pedal E ilene, Normal Capillary Refill Peripheral Pulses: 2+: Carotid (L), Carotid (R), Brachial (L), Brachial (R), Radial (L), Radial (R), Femoral (L), Femoral (R), Popliteal (L), Popliteal (R), Posterior Tibial (L), Posterior Tibial (R), Dorsalis Pedis (L), Dorsalis Pedis (R) Skin: Warm, Dry, Intact Wound/Incisions: Healing Well Neurological: No New Focal Deficit Psy/Mental Status: Alert, Normal Affect, Normal Mood - Patient Data Lab Results Last 24 hrs: Laboratory Results - last 24 hr 10/19/20 10/19/20 10/19/20 Range/Units 07:51 11:34 16:48 POC Glucose 126 H 141 H 157 H (70-99) mg/dL 10/19/20 Range/Units 20:56 POC Glucose 92 (70-99) mg/dL Result Diagrams: 10/19/20 05:15 10/18/20 16:23 Sepsis Event Note - Evaluation Sepsis Screening Result: No Definite Risk - Focused Exam Vital Signs: Vital Signs Temp Pulse Resp BP Pulse Ox Pulse Ox 10/20/20 03:55 97.8 F 63 20 166/61 H 95 10/20/20 00:00 98.4 F 60 20 147/52 H 96 10/19/20 20:00 97 10/19/20 19:59 98.9 F 67 20 136/56 L 97 - Problem List Review Problem List Initiated/Reviewed/Updated: Yes - My Orders Last 24 Hours: My Active Orders 10/19/20 08:00 Ferrous Sulfate 325 mg PO BIDMEALS Insulin Lispro [HumaLOG] See Protocol SUBCUT WITHMEALSANDBED 10/19/20 09:00 Ascorbic Acid [Vitamin C] 500 mg PO DAILY 10/19/20 13:27 Communication Order [RC] 08,20 10/19/20 13:29 Dietary Supplements [RC] 1500 10/19/20 18:00 metFORMIN [Glucophage] 500 mg PO BIDMEALS 10/19/20 21:00 Apixaban [Eliquis] 5 mg PO BID Simvastatin [Zocor] 40 mg PO BEDTIME 10/20/20 09:00 amLODIPine [Norvasc] 5 mg PO DAILY lisinopriL [Prinivil] 40 mg PO DAILY - Plan Plan:: Surgical History: IVC filter placement, bilateral cataract surgery, right hemicolectomy, tonsillectomy, hysterectomy, there is previous documentation of herniorrhap hynot otherwise specified which the patient denies Family History: Cancer, diabetes, hypertension, hyperlipidemia Social History: Tobacco: Former smoker Alcohol: Denies Caffeine: Coffee, cola Drugs: Never Allergies: Lipitor, Coumadin/warfarin Code Status: Full Assessment / Plan: Left leg pain. Minimal. As needed analgesia. Physical therapy consult. Occupational Therapy consult. Case management evaluation for potential need for placement History of cholelithiasis Osteoarthritis Diverticulosis History of colon cancer, status post right hemicolectomy. Per the patient's son, the patient is in remission and does not require any further treatment for this medical condition History of DVT/PE, status post IVC filter placement. Eliquis 5 mg p.o. twice daily History of right adrenal lesion. Outpatient follow-up with her primary care physician or with a provider History of thyroid mass, query goiter. Outpatient follow-up with her primary care physician or with a provider Iron deficiency anemia. Will monitor hemoglobin levels intermittently. Ferrous sulfate 325 mg p.o. twice daily plus vitamin C 500 mg p.o. daily Diabetes. Will check fasting glucose before every meal and at bedtime and provide sulci scale plus Metformin 500 mg p.o. twice daily GERD Hyperlipidemia. Zocor 40 mg p.o. nightly Hypertension. Norvasc 5 mg p.o. daily plus lisinopril 40 mg p.o. daily Degenerative's disease Degenerative joint disease Spinal stenosis Constipation. Colace 200 mg p.o. twice daily DVT prophylaxis. Eliquis 5 mg p.o. twice daily Disposition: The patient may be a candidate for discharge on this day of October 20, 2020 unless patient requires placement for which I will discuss with physical therapy, Occupational Therapy, and social work/case management. END OF DOCTOR EMAMIS HISTORY AND PHYSICAL / CONSULTATION NOTE
[2020-10-20 08:40] VITALS: BP 118/55
--- NOTE | 2020-10-20 08:47 | PCM.DCSUM1 ---
Discharge Summary - Hospital Course Free Text/Narrative:: START OF DOCTOR [facility]AM[facility] DISCHARGE SUMMARY Date of Admission: October 18, 2020 Date of Discharge: 8:45 AM on October 20, 2020 Primary Diagnosis: Left leg pain, uncertain etiologyresolved Secondary Diagnosis: History of cholelithiasis Osteoarthritis Diverticulosis History of colon cancer, status post right hemicolectomy. Per the patient's son, the patient is in remission and does not require any further treatment for this medical condition History of DVT and PE, status post IVC filter placement History of right adrenal lesion History of thyroid mass, query goiter Iron deficiency anemia Diabetes GERD Hyperlipidemia Hypertension Degenerative disc disease Degenerative joint disease Spinal stenosis Constipation Consultations: None Condition on Discharge: Fair Disposition: The patient will be advised follow-up with her primary care physician or with a provider 7 to 10 days post discharge for posthospitalization evaluation. The patient will need to discuss whether further evaluation will be desired for her history of her right adrenal lesion and for her history of thyroid mass which may be a goiter Discharge Medications: Multivitamin 1 tab p.o. daily Ferrous sulfate 3 and 24 mg p.o. twice daily Zocor 40 mg p.o. nightly Metformin 500 mg p.o. twice daily Lisinopril 40 mg p.o. daily Colace 200 mg p.o. twice daily Vitamin C 500 mg p.o. daily Eliquis 5 mg p.o. twice daily Norvasc 5 mg p.o. daily Tylenol 650 mg p.o. every 4 hours as needed pain END OF DOCTOR EMAMIS DISCHARGE SUMMARY - Discharge Data Discharge Date: 10/20/20 Discharge Disposition: DC/Tfer to SNF 03 Condition: Fair - Referral to Home Health Primary Care Physician: PCP None - Patient Summary/Data Consults: Consultations 10/18/20 21:31 Consult to Case Management/E/M Engineer [CONS] Routine OT Evaluation and Treatment [CONS] Routine PT Evaluation and Treatment [CONS] Routine - Patient Instructions Diet: Heart Healthy Diet, Low Sodium, Diabetic Diet Activity: As Tolerated - Discharge Plan Prescriptions/Med Rec: Docusate Sodium [Colace] 200 mg PO BID 30 Days #120 cap Ascorbic Acid [Vitamin C] 500 mg PO DAILY 30 Days #30 tablet Home Medications: Home Meds Lisinopril 40 mg PO DAILY 10/12/15 [History] Simvastatin [Zocor] 40 mg PO BEDTIME 10/12/15 [History] Apixaban [Eliquis] 5 mg PO BID 06/02/20 [History] metFORMIN [Glucophage] 500 mg PO BIDMEALS 06/02/20 [History] Multivits,Ca,Minerals/Iron/FA [Thera-Tabs M Cap[place]] 1 tab PO DAILY 06/22/20 [History] amLODIPine [Norvasc] 5 mg PO DAILY 06/22/20 [History] Ferrous Fumarate 324 mg PO BID 10/18/20 [History] Acetaminophen [Tylenol] 650 mg PO Q4H PRN tablet 10/20/20 [Rx] Ascorbic Acid [Vitamin C] 500 mg PO DAILY 30 Days #30 tablet 10/20/20 [Rx] Docusate Sodium [Colace] 200 mg PO BID 30 Days #120 cap 10/20/20 [Rx] Forms: ED Department Discharge - Discharge Summary/Plan Comment DC Time >30 min.: Yes - General Info Date of Service: 10/20/20 Functional Status: Reports: Pain Controlled - Review of Systems General: Reports: No Symptoms HEENT: Reports: No Symptoms Pulmonary: Reports: No Symptoms Cardiovascular: Reports: No Symptoms Gastrointestinal: Reports: No Symptoms Genitourinary: Reports: No Symptoms Musculoskeletal: Reports: No Symptoms Skin: Reports: No Symptoms Neurological: Reports: No Symptoms Psychiatric: Reports: No Symptoms - Patient Data Vitals - Most Recent: Last Vital Signs Temp 97.2 F 10/20/20 08:00 Pulse 63 10/20/20 08:00 Resp 18 10/20/20 08:00 BP 118/55 L 10/20/20 08:00 Pulse Ox 95 10/20/20 08:00 Weight - Most Recent: 126 lb 14.4 oz I&O - Last 24 hours: Intake & Output 10/19/20 10/20/20 10/20/20 22:59 06:59 14:59 Intake Total 50 Output Total 250 550 200 Balance -200 -550 -200 Lab Results - Last 24 hrs: Laboratory Results - last 24 hr 10/19/20 10/19/20 10/19/20 Range/Units 11:34 16:48 20:56 POC Glucose 141 H 157 H 92 (70-99) mg/dL 10/20/20 Range/Units 07:45 POC Glucose 148 H (70-99) mg/dL [facility] Results - Last 24 hrs: Microbiology 10/20/20 07:10 Stool Occult Blood ([facility]) - Final Stool / Feces Med Orders - Current: Current Medications Acetaminophen (Acetaminophen 325 Mg Tab) 650 mg PO Q4H PRN PRN Reason: Pain (Mild 1-3)/fever Last Admin: 10/19/20 01:18 Dose: 650 mg Documented by: Hydrocodone Bitart/Acetaminophen (Acetaminophen/Hydrocodone 325-5 Mg Tab) 1 tab PO Q4H PRN PRN Reason: Pain (moderate 4-6) Amlodipine Besylate (Amlodipine 5 Mg Tab) 5 mg PO DAILY [facility] Apixaban (Apixaban 5 Mg Tab) 5 mg PO BID [facility] Last Admin: 10/19/20 21:02 Dose: 5 mg Documented by: Ascorbic Acid (Ascorbic Acid 500 Mg Tab) 500 mg PO DAILY [facility] Last Admin: 10/19/20 08:42 Dose: 500 mg Documented by: Dextrose/Water (50% Dextrose In Water 50 Ml Syringe) 50 ml IVPUSH Q15M PRN PRN Reason: Hypoglycemia Docusate Sodium (Docusate Sodium 100 Mg Cap) 200 mg PO BID [facility] Ferrous Sulfate (Ferrous Sulfate 325 Mg Tab) 325 mg PO BIDMEALS [facility] Last Admin: 10/19/20 17:11 Dose: 325 mg Documented by: Glucagon (Glucagon,Human Recombinant 1 Mg Vial) 1 mg IM Q15M PRN PRN Reason: Hypoglycemia Insulin Human Lispro (Insulin Lispro 100 Units/Ml 3 Ml Vial) [facility] Protocol Last Admin: 10/19/20 21:07 Dose: Not Given Documented by: Lisinopril (Lisinopril 20 Mg Tab) 40 mg PO DAILY [facility] Metformin HCl (Metformin 500 Mg Tab) 500 mg PO BIDMEALS [facility] Last Admin: 10/19/20 17:10 Dose: 500 mg Documented by: Morphine Sulfate (Morphine 2 Mg/Ml Syringe) 1 mg IVPUSH Q4H PRN PRN Reason: Pain (severe 7-10) Ondansetron HCl (Ondansetron 4 Mg/2 Ml Sdv) 4 mg IVPUSH Q4H PRN PRN Reason: Nausea/Vomiting Simvastatin (Simvastatin 40 Mg Tab) 40 mg PO BEDTIME [facility] Last Admin: 10/19/20 21:02 Dose: 40 mg Documented by: Sodium Chloride (Sodium Chloride 0.9% 10 Ml Syringe) 10 ml FLUSH ASDIRECTED PRN PRN Reason: Keep Vein Open - Exam General: Reports: Alert, Oriented HEENT: Reports: Pupils Equal, Pupils Reactive, EOMI, Mucous Membr. Moist/[place] Neck: Reports: Supple Lungs: Reports: Clear to Auscultation, Normal Respiratory Effort Cardiovascular: Reports: Regular Rate, Regular Rhythm GI/Abdominal Exam: Normal Bowel Sounds, Soft, Non-Tender, No Organomegaly, No Distention, No Abnormal Bruit, No Mass, Pelvis Stable Back Exam: Reports: Normal Inspection, Full Range of Motion Extremities: Normal Inspection, Normal Range of Motion, Non-Tender, No Pedal Edema, Normal Capillary Refill Skin: Reports: Warm, Dry, Intact Wound/Incisions: Reports: Healing Well Neurological: Reports: No New Focal Deficit Psy/Mental Status: Reports: Alert, Normal Affect, Normal Mood
[2020-10-20] MEDS ORDERED: Docusate Sodium 100 MG Cap PO SCH (09:00)
[2020-10-20] MEDS ORDERED: Lisinopril 20 MG Tab PO SCH (09:00)
[2020-10-20] MEDS ORDERED: amLODIPine 5 MG Tab PO SCH (09:00)
[2020-10-20] MEDS: Apixaban 5 MG Tab PO SCH (09:04)
[2020-10-20] MEDS: metFORMIN 500 MG Tab PO SCH (09:04)
[2020-10-20] MEDS: Ascorbic Acid 500 MG Tab PO SCH (09:05)
[2020-10-20] MEDS: Ferrous Sulfate 325 MG Tab PO SCH (09:05)
[2020-10-20] MEDS: Insulin Lispro 100 Units/ML 3 ML Vial SUBCUT SCH (09:42)
== END 2020-10-20 10:30 | DRG 556 ==
LOC: DL.ED 16:02 → DL.MS 21:15
PROVIDERS: ADMIT Internal Medicine; ATTEND Internal Medicine
DX: I82.812 Embolism and thrombosis of superficial veins of left lower extremity (principal); M79.605 Pain in left leg; M51.36 Other intervertebral disc degeneration, lumbar region; M19.90 Unspecified osteoarthritis, unspecified site; K57.90 Diverticulosis of intestine, part unspecified, without perforation or abscess without bleeding; E04.9 Nontoxic goiter, unspecified; D50.9 Iron deficiency anemia, unspecified; E11.9 Type 2 diabetes mellitus without complications; K21.9 Gastro-esophageal reflux disease without esophagitis; E78.5 Hyperlipidemia, unspecified; M48.00 Spinal stenosis, site unspecified; K59.00 Constipation, unspecified; H91.90 Unspecified hearing loss, unspecified ear; H54.7 Unspecified visual loss; K44.9 Diaphragmatic hernia without obstruction or gangrene; N18.9 Chronic kidney disease, unspecified; I12.9 Hypertensive chronic kidney disease with stage 1 through stage 4 chronic kidney disease, or unspecified chronic kidney disease; E11.22 Type 2 diabetes mellitus with diabetic chronic kidney disease; Z90.89 Acquired absence of other organs; Z98.41 Cataract extraction status, right eye; Z85.038 Personal history of other malignant neoplasm of large intestine; Z86.718 Personal history of other venous thrombosis and embolism; Z79.01 Long term (current) use of anticoagulants; Z86.711 Personal history of pulmonary embolism; Z79.899 Other long term (current) drug therapy; Z88.8 Allergy status to other drugs, medicaments and biological substances; Z79.84 Long term (current) use of oral hypoglycemic drugs; Z98.42 Cataract extraction status, left eye; Z90.710 Acquired absence of both cervix and uterus; Z20.822 Contact with and (suspected) exposure to COVID-19; M71.22 Synovial cyst of popliteal space [Baker], left knee
CPT/HCPCS: 36415; 72100; 73552; 73590; 80053; 82728; 83540; 83550; 85025; 85379; 85610; 93971; 99284; U0002; 82272; 82947; 85018; 97162-GP; 97165-GO; A9270-GY; J1815-GY

== ENCOUNTER 2020-11-04 13:21 | Emergency (ER) | payer MEDICARE, BC ==
[2020-11-04] MEDS ORDERED: Sodium Chloride 0.9% 10 ML Syringe FLUSH PRN (13:41)
[2020-11-04 14:07] LABS: PTT,PARTIAL THROMBOPLSTIN TIME 24.4 SEC (22.0-34.0)
[2020-11-04 14:11] LABS: ANION GAP 16.8 mEq/L (7-13); CHLORIDE,CL 103 mmol/L (98-107); SODIUM,NA 143 mmol/L (136-145)
--- NOTE | 2020-11-04 14:58 | CT ---
PROCEDURE INFORMATION: Exam: CT Cervical Spine Without Contrast Exam date and time: 11/04/2020 1:45 PM Age: 85 years old Clinical indication: Other: Trauma, fall head/neck pain, on anticoagulant TECHNIQUE: Imaging protocol: Computed tomography images of the cervical spine without contrast. Radiation optimization: All CT scans at this facility use at least one of these dose optimization techniques: automated exposure control; mA and/or kV adjustment per patient size (includes targeted exams where dose is matched to clinical indication); or iterative reconstruction. COMPARISON: No relevant prior studies available. FINDINGS: Bones/joints: No acute fractures seen. The alignment of the cervical spine shows loss of lordosis above C6. Chronic degenerative vertebral body endplate osteophytosis with diminished disc height is seen at levels C4-C7. Mild central spinal canal stenosis at C5/C6, principally secondary to posterior vertebral body endplate osteophytic spurring. Discs/Spinal canal/Neural foramina: Chronic degenerative bony neuroforaminal stenosis secondary to uncal joint and posterior facet joint arthropathy, bilaterally at C4/C5, C5/C6 and C6/C7. Lungs: Lung apices are normal. Soft tissues: Unremarkable prevertebral and posterior paraspinal soft tissues. IMPRESSION: 1. No acute fractures seen. Impression. 2. The alignment of the cervical spine shows loss of lordosis above C6. 3. Chronic degenerative vertebral body endplate osteophytosis with diminished disc height is seen at levels C4-C7. 4. Chronic degenerative bony neuroforaminal stenosis secondary to uncal joint and posterior facet joint arthropathy, bilaterally at C4/C5, C5/C6 and C6/C7. 5. Mild central spinal canal stenosis at C5/C6, principally secondary to posterior vertebral body endplate osteophytic spurring.
--- NOTE | 2020-11-04 15:05 | CT ---
PROCEDURE INFORMATION: Exam: CT Head Without Contrast Exam date and time: 11/04/2020 1:45 PM Age: 85 years old Clinical indication: Other: Trauma, fall head/neck pain, on anticoagulant TECHNIQUE: Imaging protocol: Computed tomography of the head without contrast. Radiation optimization: All CT scans at this facility use at least one of these dose optimization techniques: automated exposure control; mA and/or kV adjustment per patient size (includes targeted exams where dose is matched to clinical indication); or iterative reconstruction. COMPARISON: No relevant prior studies available. FINDINGS: Brain: No acute intracerebral abnormality or injury. No acute infarct or intracerebral bleed. 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 [place] Stroke Program Early CT Score (ASPECTS score) = 10, negative for acute intracerebral infarct. Cerebral ventricles: No ventriculomegaly. Paranasal sinuses: Visualized sinuses are unremarkable. No fluid levels. Mastoid air cells: Visualized mastoid air cells are well aerated. Bones/joints: Unremarkable. No acute fracture. Soft tissues: Unremarkable. IMPRESSION: 1. No acute intracerebral abnormality or injury. No acute infarct or intracerebral bleed. 2. 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 3. [place] Stroke Program Early CT Score (ASPECTS score) = 10, negative for acute intracerebral infarct.
--- NOTE | 2020-11-05 08:30 | EDM.PDOC ---
"Scribed by Felicia Morillo 11/04/20 1502 for Roger Garcia MD ED HPI GENERAL MEDICAL PROBLEM - General Chief Complaint: Trauma Stated Complaint: TRAUMA Time Seen by Provider: 11/04/20 13:22 Source of Information: Reports: Patient History Limitations: Reports: No Limitations - History of Present Illness INITIAL COMMENTS - FREE TEXT/NARRATIVE: 85 y/o F c/o posterior neck pain after falling at the [facility] [place]. Pt states she let go of her walker in the doorway and fell backwards onto the floor. Denies LOC. Pt states it took her a long time to get off the floor but she was able to get up on her own. Pt is on Eliquis. Denies vision prob, NV, cp, back pn, abd pn, pelvic pn, extremity pain. TRAUMA: ARRIVAL TIME: 1322 C-COLLAR STATUS: C-collar placed at time of arrival GCS ON ARRIVAL: 15 LONG SPINAL BOARD STATUS: N/A Onset: Sudden Duration: Hour(s): Location: Reports: Neck Quality: Reports: Ache Severity: Mild Improves with: Reports: None Worsens with: Reports: Movement - Related Data Allergies Allergy/AdvReac Type Severity Reaction Status Date / Time atorvastatin calcium Allergy Leg Cramps Verified 10/18/20 21:25 [From Lipitor] warfarin sodium Allergy Dizziness Verified 10/18/20 21:25 [From Coumadin] Home Meds: Home Meds Lisinopril 40 mg PO DAILY 10/12/15 [History] Simvastatin [Zocor] 40 mg PO BEDTIME 10/12/15 [History] Apixaban [Eliquis] 5 mg PO BID 06/02/20 [History] metFORMIN [Glucophage] 500 mg PO BIDMEALS 06/02/20 [History] Multivits,Ca,Minerals/Iron/FA [Thera-Tabs M Caplet] 1 tab PO DAILY 06/22/20 [History] amLODIPine [Norvasc] 5 mg PO DAILY 06/22/20 [History] Ferrous Fumarate 324 mg PO BID 10/18/20 [History] Acetaminophen [Tylenol] 650 mg PO Q4H PRN tablet 10/20/20 [Rx] Ascorbic Acid [Vitamin C] 500 mg PO DAILY 30 Days #30 tablet 10/20/20 [Rx] Docusate Sodium [Colace] 200 mg PO BID 30 Days #120 cap 10/20/20 [Rx] Past Medical History HEENT History: Reports: Hard of Hearing, Impaired Vision Other HEENT History: wears glasses Cardiovascular History: Reports: Blood Clots/VTE/DVT, Hypertension Respiratory History: Reports: None Gastrointestinal History: Reports: Diverticulosis, GI Bleed, Hiatal Hernia Genitourinary History: Reports: Chronic Renal Insuffiency [employer] History: Reports: Musculoskeletal History: Reports: Osteoarthritis Neurological History: Reports: None Psychiatric History: Reports: None Endocrine/Metabolic History: Reports: Diabetes, Type II Hematologic History: Reports: Anemia, Iron Deficiency Immunologic History: Reports: None Oncologic (Cancer) History: Reports: Colon Dermatologic History: Reports: None - Infectious Disease History Infectious Disease History: Reports: Other (See Below) Other Infectious Disease History: does not remember - Past Surgical History Head Surgeries/Procedures: Reports: None HEENT Surgical History: Reports: Cataract Surgery, Tonsillectomy Other HEENT Surgeries/Procedures: bilateral eyes. Cardiovascular Surgical History: Reports: Other (See Below) Other Cardiovascular Surgeries/Procedures: VENA CAVA UMBRELLA PLACEMENT Respiratory Surgical History: Reports: None GI Surgical History: Reports: Colonoscopy, EGD, Hernia Repair/Other Female Surgical History: Reports: Hysterectomy Endocrine Surgical History: Reports: None Neurological Surgical History: Reports: None Oncologic Surgical History: Reports: None Dermatological Surgical History: Reports: None Social & Family History - Family History Family Medical History: No Pertinent Family History Cardiac: Reports: High Cholesterol, Hypertension Endocrine/Metabolic: Reports: Diabetes, type II - Caffeine Use Caffeine Use: Reports: Coffee Caffeine Use Comment: rare - Living Situation & Occupation Occupation: Retired Review of Systems - Review of Systems Review Of Systems: Comprehensive ROS is negative, except as noted in HPI. ED EXAM, GENERAL - Physical Exam Exam: See Below Free Text/Narrative:: PRIMARY TRAUMA SURVEY: AIRWAY: Patent nasal and oral airways, conversant with normal speech, no evidence of airway obstruction. BREATHING: Spontaneous respirations, symmetric chest rise and fall, non-labored breathing. CIRCULATION: No central, peripheral, or perioral cyanosis. Heart regular rate and rhythm, non-muffled, no murmur. Intact distal pulses and capillary refill x all 4 distal extremities. DEFORMITY/DISABILITY: Head normal cephalic, atraumatic; Neck c-collar placed on arrival. Chest non-tender. Abdomen soft, non-tender, benign to exam. Pelvis stable. Upper extremities non-tender, atraumatic. Lower extremities non-tender, atraumatic. No active bleeding, no long bone deformities. No acute motor or sensory deficits. CN II-XII intact. GCS 15 on arrival. EXPOSURE: Skin warm and dry. Exam Limited By: No Limitations General Appearance: Alert, WD/WN, No Apparent Distress Eye Exam: Bilateral Eye: PERRL Ears: Normal External Exam, Normal Canal, Hearing Grossly Normal, Normal TMs Nose: Normal Inspection Throat/Mouth: Normal Inspection, Normal Lips, Normal Teeth, Normal Gums, Normal Oropharynx, Normal Voice, No Airway Compromise Head: Atraumatic, Normocephalic Neck: Supple, Other (Pt was placed in c-collar. Swelling noted to the posterior neck at the base of the occiput with no ovious lacerations. C-spine cleared by CT scan. C-collar removed by RN. ) Respiratory/Chest: No Respiratory Distress, Lungs Clear, Normal Breath Sounds Cardiovascular: Normal Peripheral Pulses, Regular Rate, Rhythm, No Edema, No JVD Peripheral Pulses: 2+: Carotid (L), Carotid (R), Radial (L), Radial (R), Dorsalis Pedis (L), Dorsalis Pedis (R) GI/Abdominal: Soft, Non-Tender, No Distention (Female) Exam: Deferred Rectal (Female) Exam: Deferred Back Exam: Normal Inspection, Full Range of Motion Extremities: Normal Inspection, Normal Range of Motion, Non-Tender, No Pedal Edema Neurological: Alert, Oriented, CN II-XII Intact, Normal Cognition, Normal Gait, No Motor/Sensory Deficits, Other (GCS 15 at 1 hour and at discharge.) Psychiatric: Normal Affect, Normal Mood Skin Exam: Warm, Dry, Intact #1 Interpretation EKG Date: 11/04/20 Time: 13:35 Rhythm: Other (SR) Rate (Beats/Min): 70 [place]: LAD-Left [place] Deviation P-Wave: Present QRS: RBBB (and LAFB, LVH) ST-T: Normal QT: Normal Comparison: NA - No Prior EKG Course - Orders/Labs/Meds Orders: Active Orders 24 hr Category Date Time Status Peripheral IV Insertion Adult [OM.PC] Stat Oth 11/04/20 13:43 Ordered Labs: Laboratory Tests 11/04/20 11/04/20 11/04/20 Range/Units 13:40 13:40 13:40 WBC 6.4 (5.0-10.0) 10^3/uL RBC 4.59 (4.2-5.4) 10^6/uL Hgb 11.7 L (12.0-16.0) g/dL Hct 37.5 (37.0-47.0) % MCV 81.7 (80-100) fL MCH 25.5 L (27.0-34.0) pg MCHC 31.2 L (33.0-35.0) g/dL Plt Count 241 (150-450) 10^3/uL Neut % (Auto) 69.9 (42.2-75.2) % Lymph % (Auto) 18.4 L (20.5-50.1) % [place] % (Auto) 9.5 H (2-8) % Eos % (Auto) 1.6 (1.0-3.0) % Baso % (Auto) 0.6 (0.0-1.0) % PT 11.6 (9.0-12.0) SEC INR 1.2 (0.9-1.2) APTT 24.4 (22.0-34.0) SEC Sodium 143 (136-145) mmol/L Potassium 3.8 (3.5-5.1) mmol/L Chloride 103 (98-107) mmol/L Carbon Dioxide 27 (21-32) mmol/L Anion Gap 16.8 H (7-13) mEq/L BUN 14 (7-18) mg/dL Creatinine 0.85 (0.55-1.02) mg/dL Est Cr Clr Drug Dosing TNP Estimated GFR (MDRD) > 60 BUN/Creatinine Ratio 16.5 (No establ ref range) Glucose 176 H (70-99) mg/dL Calcium 9.1 (8.5-10.1) mg/dL Total Bilirubin 0.7 (0.2-1.0) mg/dL AST 18 (15-37) U/L ALT 22 (14-59) U/L Alkaline Phosphatase 87 (46-116) U/L Troponin I High Sens 32 (<=51) pg/mL Total Protein 7.2 (6.4-8.2) g/dL Albumin 3.3 L (3.4-5.0) g/dL Globulin 3.9 Albumin/Globulin Ratio 0.85 Ethyl Alcohol < 3 (0) mg/dL Meds: Medications Discontinued Medications Generic Name Dose Route Start Last Admin Trade Name Freq PRN Reason Stop Dose Admin Sodium Chloride 10 ml 11/04/20 13:41 Sodium Chloride 0.9% 10 Ml Syringe FLUSH ASDIRECTED PRN Keep Vein Open - Radiology Interpretation Free Text/Narrative:: [facility] [place] [facility] Final Radiology Report Call: [phone] assistance Online chat: [email or web address] Name: VIVEK RICHARD Age: 85Years F Date: 11/04/2020 SSN: -- : 1935 Study: CT CERVICAL SPINE WO CONT Requesting Physician: ROGER GARCIA Images: [id number] Addl Studies: Provided Clinical History: TRAUMA, fall head/neck pain, on anticoagulant Contrast: Without Contrast Medium: Contrast Amount: Contrast Method: Page 1 of 2 PROCEDURE INFORMATION: Exam: CT Cervical Spine Without Contrast Exam date and time: 11/04/2020 1:45 PM Age: 85 years old Clinical indication: Other: Trauma, fall head/neck pain, on anticoagulant TECHNIQUE: Imaging protocol: Computed tomography images of the cervical spine without contrast. Radiation optimization: All CT scans at this facility use at least one of these dose optimization techniques: automated exposure control; mA and/or kV adjustment per patient size (includes targeted exams where dose is matched to clinical indication); or iterative reconstruction. COMPARISON: No relevant prior studies available. FINDINGS: Bones/joints: No acute fractures seen. The alignment of the cervical spine shows loss of lordosis above C6. Chronic degenerative vertebral body endplate osteophytosis with diminished disc height is seen at levels C4-C7. Mild central spinal canal stenosis at C5/C6, principally secondary to posterior vertebral body endplate osteophytic spurring. Discs/Spinal canal/Neural foramina: Chronic degenerative bony neuroforaminal stenosis secondary to uncal joint and posterior facet joint arthropathy, bilaterally at C4/C5, C5/C6 and C6/C7. Lungs: Lung apices are normal. Soft tissues: Unremarkable prevertebral and posterior paraspinal soft tissues. IMPRESSION: 1. No acute fractures seen. Impression. 2. The alignment of the cervical spine shows loss of lordosis above C6. VIVEK RICHARD | Final Radiology Report CONFIDENTIALITY STATEMENT This report is intended only for use by the referring physician, and only in accordance with law. If you received this in error, call [phone]. Page 2 of 2 3. Chronic degenerative vertebral body endplate osteophytosis with diminished disc height is seen at levels C4-C7. 4. Chronic degenerative bony neuroforaminal stenosis secondary to uncal joint and posterior facet joint arthropathy, bilaterally at C4/C5, C5/C6 and C6/C7. 5. Mild central spinal canal stenosis at C5/C6, principally secondary to posterior vertebral body endplate osteophytic spurring. Thank you for allowing us to participate in the care of your patient. Dictated and Authenticated by: Jeremy Best MD 11/04/2020 2:58 PM Central Time ([place] & [place]) [facility] Final Radiology Report Call: [phone] assistance Online chat: [email or web address] Name: VIVEK RICHARD Age: 85Years F Date: 11/04/2020 SSN: -- : 1935 Study: CT HEAD WO CONT Requesting Physician: ROGER GARCIA Images: [id number] Addl Studies: Provided Clinical History: TRAUMA, fall head/neck pain, on anticoagulant Contrast: Without Contrast Medium: Contrast Amount: Contrast Method: Page 1 of 2 PROCEDURE INFORMATION: Exam: CT Head Without Contrast Exam date and time: 11/04/2020 1:45 PM Age: 85 years old Clinical indication: Other: Trauma, fall head/neck pain, on anticoagulant TECHNIQUE: Imaging protocol: Computed tomography of the head without contrast. Radiation optimization: All CT scans at this facility use at least one of these dose optimization techniques: automated exposure control; mA and/or kV adjustment per patient size (includes targeted exams where dose is matched to clinical indication); or iterative reconstruction. COMPARISON: No relevant prior studies available. FINDINGS: Brain: No acute intracerebral abnormality or injury. No acute infarct or intracerebral bleed. 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 [place] Stroke Program Early CT Score (ASPECTS score) = 10, negative for acute intracerebral infarct. Cerebral ventricles: No ventriculomegaly. Paranasal sinuses: Visualized sinuses are unremarkable. No fluid levels. Mastoid air cells: Visualized mastoid air cells are well aerated. Bones/joints: Unremarkable. No acute fracture. Soft tissues: Unremarkable. IMPRESSION: 1. No acute intracerebral abnormality or injury. No acute infarct or intracerebral bleed. VIVEK RICHARD | Final Radiology Report CONFIDENTIALITY STATEMENT This report is intended only for use by the referring physician, and only in accordance with law. If you received this in error, call [phone]. Page 2 of 2 2. 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 3. [place] Stroke Program Early CT Score (ASPECTS score) = 10, negative for acute intracerebral infarct. Thank you for allowing us to participate in the care of your patient. Dictated and Authenticated by: Jeremy Best MD 11/04/2020 3:05 PM Central Time ([place] & [place]) - Re-Assessments/Exams Free Text/Narrative Re-Assessment/Exam: 11/04/20 15:52 Pt unable to produce a urine specimen and refuses quick-cath. We explained that UTI can increase falls risk, but she wishes to forgo a UA and be discharged home. Departure - Departure Time of Disposition: 15:53 Disposition: Home, Self-Care 01 Condition: Good Clinical Impression: Frequent falls Scalp contusion Qualifiers: Encounter type: initial encounter Qualified Code(s): S00.03XA - Contusion of scalp, initial encounter - Discharge Information *PRESCRIPTION DRUG MONITORING PROGRAM REVIEWED*: Not Applicable *COPY OF PRESCRIPTION DRUG MONITORING REPORT IN PATIENT ILEANA: Not Applicable Instructions: Fall Prevention in the Home, Adult, [id number], Facial or Scalp Contusion, [id number] Referrals: Nikolai Petty MD [Primary Care Provider] - Forms: ED Department Discharge Additional Instructions: Follow up with your primary doctor to discuss falls risk and possible physical therapy for fall prevention. - My Orders Last 24 Hours: My Active Orders 11/04/20 13:43 Peripheral IV Insertion Adult [OM.PC] Stat - Assessment/Plan Last 24 Hours: My Active Orders 11/04/20 13:43 Peripheral IV Insertion Adult [OM.PC] Stat I have read and agree with the documentation that has been completed regarding this visit. By signing this record, I attest that the documentation was completed in my physical presence and is an accurate record of the encounter."
== END 2020-11-04 16:12 | disposition home or self-care (01) ==
LOC: DL.ED 13:21
DX: S00.03XA Contusion of scalp, initial encounter (principal); I12.9 Hypertensive chronic kidney disease with stage 1 through stage 4 chronic kidney disease, or unspecified chronic kidney disease; E11.22 Type 2 diabetes mellitus with diabetic chronic kidney disease; N18.9 Chronic kidney disease, unspecified; R29.6 Repeated falls; Z86.718 Personal history of other venous thrombosis and embolism; Z79.01 Long term (current) use of anticoagulants; Z79.899 Other long term (current) drug therapy; Z79.84 Long term (current) use of oral hypoglycemic drugs; Z88.8 Allergy status to other drugs, medicaments and biological substances; W18.39XA Other fall on same level, initial encounter
CPT/HCPCS: 36415; 70450; 72125; 80053; 80307; 84484; 85025; 85610; 85730; 93005; 93010; 99284; 99284-25